=== PATIENT | female | born 1940 | race American Indian/Alaskan Native ===

== ENCOUNTER 2021-05-14 12:30 | Inpatient (IN) | payer MEDICARE ==
[2021-05-14] MEDS ORDERED: SODIUM CHLORIDE 0.9% 500 ML 500 ML IV ONE (12:35)
--- NOTE | 2021-05-14 12:39 | Emergency Department Report ---
ED General Adult HPI - General Stated complaint: STROKE Time Seen by Provider: 05/14/21 12:33 - History of Present Illness Initial comments: Patient presents by EMS secondary to altered CODE STATUS. History is obtained from EMS as the patient is nonverbal. No family is present at this time. EMS was called because the patient was altered this morning. Family checked on the patient and put her to bed at 10 PM last night. They checked on her about 10 AM today and found her confused, she was altered. She was not speaking. She had a left-sided deficit. EMS was called and the patient was transported here. EMS reports that the patient has had seizure type activity during transport. She has been nonverbal but will occasionally nod her head. She will not nod her head consistently. They did administer Ativan 2 mg intranasally during transpor t. Glucose have been found to be 220. - Related Data Previous Rx's Medication Instructions Recorded Last Taken Type Aspirin [Adult Aspirin] 81 mg PO DAILY #30 tablet. 06/30/20 12/13/20 10:00 Rx methIMAzole [Tapazole] 10 mg PO Q24HR #30 tablet 06/30/20 12/13/20 Rx Lansoprazole Solutab [Prevacid 30 mg FEEDTUBE QDAY #30 tab.rapdis 12/27/20 Unkn own Rx Solutab] Apixaban [Eliquis] 5 mg PO Q12HR #60 tablet 12/28/20 Unknown Rx AtorvaSTATin [Lipitor] 40 mg PO QHS #30 tablet 12/28/20 Unknown Rx Metoprolol [Lopressor TAB] 50 mg PO BID #60 tablet 12/28/20 Unknown Rx amLODIPine 10 mg PO DAILY #30 tablet 12/28/20 Unknown Rx hydrALAZINE [Apresoline TAB] 50 mg PO Q8HR #120 tablet 12/28/20 Unknown Rx levETIRAcetam [Keppra] 1,000 mg PO BID #60 oral.liqd 12/28/20 Unknown Rx lisinopriL [Zestril TAB] 20 mg PO BID #60 tablet 12/28/20 Unknown Rx Allergies Allergy/AdvReac Type Severity Reaction Status Date / Time No Known Allergies Allergy Unverified 06/26/20 23:34 ED Review of Systems ROS: Stated complaint: STROKE Other details as noted in HPI Comment: Unobtainable due to pts medical conditions (Nonverbal and altered mental status) ED Past Medical Hx - Past Medical History Hx Hypertension: Yes Hx CVA: Yes (Right side) Hx Heart Attack/AMI: Yes Hx Diabetes: Yes Hx Liver Disease: No Hx Renal Disease: No Hx Sickle Cell Disease: No Hx Seizures: Yes - Family History Family history: other (Cannot be obtained secondary to patient being nonverbal and altered mental status) - Social History Smoking Status: Never Smoker Other Social History: Patient does live at home with her family. EMS reports that the home was clean. - Medications Home Medications: Home Medications Medication Instructions Recorded Confirmed Last Taken Type Aspirin [Adult Aspirin] 81 mg PO DAILY #30 tablet. 06/30/20 12/14/20 12/13/20 10:00 Rx methIMAzole [Tapazole] 10 mg PO Q24HR #30 tablet 06/30/20 12/14/20 12/13/20 Rx Lansoprazole Solutab [Prevacid 30 mg FEEDTUBE QDAY #30 tab.rapdis 12/27/20 Unknown Rx Solutab] Apixaban [Eliquis] 5 mg PO Q12HR #60 tablet 12/28/20 Unknown Rx AtorvaSTATin [Lipitor] 40 mg PO QHS #30 tablet 12/28/20 Unknown Rx Metoprolol [Lopressor TAB] 50 mg PO BID #60 tablet 12/28/20 Unknown Rx amLODIPine 10 mg PO DAILY #30 tablet 12/28/20 Unknown Rx hydrALAZINE [Apresoline TAB] 50 mg PO Q8HR #120 tablet 12/28/20 Unknown Rx levETIRAcetam [Keppra] 1,000 mg PO BID #60 oral.liqd 12/28/20 Unknown Rx lisinopriL [Zestril TAB] 20 mg PO BID #60 tablet 12/28/20 Unknown Rx ED Physical Exam - General Limitations: Altered Mental Status General appearance: alert, other (Nonverbal. Head is deviated to the left. Patient has a conjugate gaze. She will nod her head vertically to every question) - Head Head exam: Present: atraumatic, other (Left flattening of the nasolabial fold) - Eye Eye exam: Present: normal appearance, PERRL. Absent: scleral icterus, conjunctival injection - ENT ENT exam: Present: normal exam, normal orophraynx - Neck Neck exam: Absent: lymphadenopathy - Respiratory Respiratory exam: Present: normal lung sounds bilaterally. Absent: respiratory distress - Cardiovascular Cardiovascular Exam: Present: tachycardia - GI/Abdominal GI/Abdominal exam: Present: soft. Absent: distended, pulsatile mass - Extremities Exam Extremities exam: Present: normal capillary refill, other (Right AKA) - Back Exam Back exam: Absent: rash noted - Neurological Exam Neurological exam: Present: alert, altered, reflexes normal (Bicipital reflexes are 2+ and brisk) - Psychiatric Psychiatric exam: Present: other (Cannot assess as the patient is nonverbal) - Skin Skin exam: Present: dry, other (Hot to touch) ED Course Vital Signs 05/14/21 05/14/21 05/14/21 12:45 13:24 13:29 Temperature 101.8 F H 101.9 F H Pulse Rate 110 H Respiratory 16 Rate Blood Pressure Blood Pressure [Right] O2 Sat by Pulse 100 Oximetry 05/14/21 05/14/21 05/14/21 13:31 13:45 13:49 Temperature Pulse Rate 111 H 113 H Respiratory 24 23 17 Rate Blood Pressure 227/112 201/108 Blood Pressure [Right] O2 Sat by Pulse 100 100 100 Oximetry 05/14/21 05/14/21 05/14/21 14:00 14:15 14:31 Temperature Pulse Rate 113 H 107 H 105 H Respiratory 22 22 13 Rate Blood Pressure 226/119 225/114 213/113 Blood Pressure [Right] O2 Sat by Pulse 100 100 100 Oximetry 05/14/21 05/14/21 05/14/21 14:35 14:45 15:01 Temperature Pulse Rate 107 H 78 82 Respiratory 21 21 Rate Blood Pressure 213/113 213/113 208/104 Blood Pressure [Right] O2 Sat by Pulse 100 100 Oximetry 05/14/21 05/14/21 05/14/21 15:15 15:31 15:41 Temperature Pulse Rate 82 82 Respiratory 20 22 Rate Blood Pressure 208/104 191/95 Blood Pressure 180/100 [Right] O2 Sat by Pulse 100 100 Oximetry 05/14/21 15:45 Temperature Pulse Rate 84 Respiratory 15 Rate Blood Pressure 241/118 Blood Pressure [Right] O2 Sat by Pulse 100 Oximetry - Reevaluation(s) Reevaluation #1: 05/14/21 12:40 EMS was met upon arrival. Stroke activation had been started, but the patient would not meet criteria for thrombolytic therapy. Her symptom onset was potentially 12 hours prior. She has been seizing. She is febrile. I do not believe this represents an acute stroke syndrome that would benefit from thrombolytic therapy. Reevaluation #2: 05/14/21 13:16 Case was discussed with the neurologist who recommends loading with Keppra and Ativan. If she is not waking up, he recommends "intubation and transfer for video EEG." Patient is currently protecting her airway. Reevaluation #3: 05/14/21 15:43 Labs of been reviewed. UA is pending. Patient does seem to be improving and waking up with medication on board. Blood pressure is also improving after la betalol. She will still require admission. She may very well have a urinary tract infection. We will dose antibiotics based on the UA. Certainly, she could have coronavirus without radiographic findings on the chest x-ray suggestive of Covid infection. She does not seem to have ongoing or worsening mentation changes, and actually is improving. Currently I do not believe LP is necessary. Reevaluation #4: 05/14/21 16:43 LP was unsuccessful. We will proceed with admission. Dr. Still had been paged. ED Medical Decision Making - Lab Data Result diagrams: 05/14/21 12:39 05/14/21 12:39 - Medical Decision Making Patient presented with EMS due to altered mental status as a stroke activation. Whether this was truly a stroke is unclear. She has an acute febrile illness and tachycardia that has responded to antipyretics and fluids. There is no clear source of infection. She certainly could have coronavirus. She also had recurrent seizures. Whether she was postictal is unclear. We did attempt LP which was unsuccessful. Currently, antibiotics have not empirically been started as we do not have a source for infection. Now that the patient has defervesced and is getting IV fluids, she does appear to be improved. Case has been discussed with neurologist regarding the CT and lack of convincing evidence of acute stroke and the fact that she would not have been a thrombolytic candidate. Critical Care Time: No Critical care attestation.: If time is entered above; I have spent that time in minutes in the direct care of this critically ill patient, excluding procedure time. ED Disposition Clinical Impression: Altered mental status, HTN (hypertension), Febrile illness, acute Disposition: ADMITTED INPATIENT Is pt being admited?: Yes Does the pt Need Aspirin: No Condition: Stable Instructions: Hypertension (ED) Referrals: PRIMARY CARE, [Primary Care Provider] - 3-5 Days
[2021-05-14 12:49] LABS: Hematocrit 50.5 % (30.3-42.9); Hemoglobin 16.6 gm/dl (10.1-14.3); Mean Corpuscular HGB Conc 33 % (30-34); Mean Corpuscular Volume 88 fl (79-97); Platelet Count 279 K/mm3 (140-440); Red Blood Count 5.71 M/mm3 (3.65-5.03); Red Cell Distribution Width 15.5 % (13.2-15.2)
[2021-05-14 13:01] LABS: Calcium 10.6 mg/dL (8.4-10.2)
[2021-05-14] MEDS ORDERED: levETIRAcetam 1000 MG/NS 0.75% 1,000 MG/100 ML BAG IV ONE (13:14)
--- NOTE | 2021-05-14 13:18 | Consultation ---
History of Present Illness History of present illness: [facility] Consult Note # Demographics Consult Type: Acute Stroke Level 2 (4.5-24 hrs) Patient Location: Emergency Room First Name: Kika Last Name: Matt Date of : 1940 Age: 81 Gender: Female Facility: [facility] Time of Initial Page ( Time): 05/14/2021, 12:48 Time of Return Call ( Time): 05/14/2021, 12:49 # HPI Chief Complaint: altered mental state seizure History: 81F with epilepsy, prior stroke, R AKA BIBEMS with left facial droop and AMS. Has history of seizures, and family saw seizure prior to arrival, but not clear if her usual seizures or not. Is non-verbal, altered, not following commands. Also febrile to 101F. LKWT 2200 evening prior. Requires significant assistance for daily activities. In ED, noted to have multiple convulsive seizures. Has been vomiting at home, and not clear if she has kept down her seizure medicaiton. # Scores Time of exam and NIHSS (): 05/14/2021, 12:55 Level of Consciousness 1a: [1] = Not alert; but arousable by minor stim LOC Questions 1b: [2] = Answers neither correctly LOC Commands 1c: [2] = Performs neither correctly Best Gaze 2: [0] = Normal Visual 3: [2] = Complete hemianopia Facial Palsy 4: [1] = Minor paralysis Motor Arm Left 5a: [3] = No effort against gravity Motor Arm Right 5b: [4] = No movement Motor Leg Left 6a: [3] = No effort against gravity Motor Leg Right 6b: [4] = No movement Limb Ataxia 7: [0] = Absent Sensory 8: [2] = Severe to total sensory loss Best Language 9: [3] = Mute Dysarthria 10: [2] = Severe dysarthria Extinction and Inattention 11: [2] = Profound gonzalo-inattention or extinction to more than one modality NIHSS Total: 31 # Data Time Head CT personally read by me ( Time): 05/14/2021, 12:[address]: no bleed preliminarily reviewed by me, please refer to radiology read for official gerda ding # Assessment Impression: Status Epilepticus # Plan Thrombolytic/Intervention: NOT IV Thrombolysis or IA Intervention candidate Thrombolytic Exclusion: > 4.5 hours Intraarterial Exclusion: poor functional baseline Target Blood Pressure: SBP < 220 DBP < 105 Imaging: (urgency: STAT): CT Angiogram Head and CT Angiogram Neck AND call back with results if abnormal Medication: Lorazepam 2mg IV x1 Levetiracetam 60 mg/kg then 1g BID Additional Recommendations: If no improvement or seizures continue despite lorazepam and levetiracetam, would intubate and place on propofol drip, transfer for video EEG Disposition: admit # Logistics Telemedicine: Interactive 2 way audio and visual telecommunication technology was utilized during this visit Electronically signed at 05/14/2021 13:18 (Eastern Time) by Asael Daugherty MD Medications and Allergies Allergies Allergy/AdvReac Type Severity Reaction Status Date / Time No Known Allergies Allergy Unverified 06/26/20 23:34 Home Medications Medication Instructions Recorded Confirmed Last Taken Type Aspirin [Adult Aspirin] 81 mg PO DAILY #30 tablet. 06/30/20 12/14/20 12/13/20 10:00 Rx methIMAzole [Tapazole] 10 mg PO Q24HR #30 tablet 06/30/20 12/14/20 12/13/20 Rx Lansoprazole Solutab [Prevacid 30 mg FEEDTUBE QDAY #30 tab.rapdis 12/27/20 Unknown Rx Solutab] Apixaban [Eliquis] 5 mg PO Q12HR #60 tablet 12/28/20 Unknown Rx AtorvaSTATin [Lipitor] 40 mg PO QHS #30 tablet 12/28/20 Unknown Rx Metoprolol [Lopressor TAB] 50 mg PO BID #60 tablet 12/28/20 Unknown Rx amLODIPine 10 mg PO DAILY #30 tablet 12/28/20 Unknown Rx hydrALAZINE [Apresoline TAB] 50 mg PO Q8HR #120 tablet 12/28/20 Unknown Rx levETIRAcetam [Keppra] 1,000 mg PO BID #60 oral.liqd 12/28/20 Unknown Rx lisinopriL [Zestril TAB] 20 mg PO BID #60 tablet 12/28/20 Unknown Rx Active Meds: Active Medications Levetiracetam (Keppra 1,000 Mg/Ns 0.75% 100ml) 1,000 mg in 100 mls @ 400 mls/hr IV ONCE ONE Stop: 05/14/21 13:28 Results - Laboratory Findings CBC and BMP: 05/14/21 12:39 05/14/21 12:39 Abnormal Lab Findings: Abnormal Labs 05/14/21 05/14/21 05/14/21 12:34 12:39 12:39 RBC 5.71 H Hgb 16.6 H Hct 50.5 H RDW 15.5 H Carbon Dioxide 21 L BUN 23 H Creatinine 1.6 H Glucose 252 H POC Glucose 222 H Calcium 10.6 H
--- NOTE | 2021-05-14 13:32 | Cat Scan Report ---
CT head without contrast HISTORY: CODE STROKE CALL ER MAIN AT 8199 possible stroke. TECHNIQUE: Axial imaging performed from the skull apex through the skull base without the use of con trast. All CT scans at this location are performed using CT dose reduction for ALARA by means of aut omated exposure control. COMPARISON: CT head from 12/22/2020 FINDINGS: Parenchyma: No acute intracranial hemorrhage or parenchymal abnormality. Old infarct in the left pos terior parietal region and periventricular hypodensities again noted. Ventricles: There is mild diffuse brain atrophy with commensurate ventricular enlargement which is l ikely age appropriate. Soft tissues: Soft tissues including the orbits appear normal. Bones: No acute osseous abnormality. Sinuses: Sinuses and mastoid air cells are clear. IMPRESSION: No acute abnormality. COMMUNICATION: Time of Communication (RECORDS MANAGEMENT CLERK/CDT): 12:27 pm Licensed Practitioner Receiving Report: Dr. Strange Signer Name: Ramon Vargas MD Signed: 05/14/2021 1:27 PM Workstation Name: [id number]
[2021-05-14] MEDS ORDERED: SODIUM CHLORIDE 0.9% 1000 ML IV SOLN IV ONE (13:40)
[2021-05-14 13:51] LABS: INR 1.14 (0.87-1.13)
[2021-05-14 13:52] LABS: Partial Thromboplastin Time 26.9 Sec. (24.2-36.6); Thrombin Time 18.2 Sec. (15.1-19.6)
--- NOTE | 2021-05-14 14:03 | XRay Report ---
CHEST 1 VIEW INDICATION: sirs. COMPARISON: 12/14/2020 FINDINGS: SUPPORT DEVICES: None. HEART: Within normal limits. LUNGS/PLEURA: No acute air space or interstitial disease. ADDITIONAL FINDINGS: None. IMPRESSION: 1. No acute findings. Signer Name: Raomn Vargas MD Signed: 05/14/2021 1:58 PM Workstation Name: [email or web address]
--- NOTE | 2021-05-14 14:10 | Cat Scan Report ---
CT angio head INDICATION / CLINICAL INFORMATION: 81 years Female; CODE STROKE CALL ER MAIN AT 8199 OMNI 350 100 ML stroke sx. TECHNIQUE: Thin cut axial images obtained through the head during IV bolus contrast administration. S agittal, coronal, and 3 plane MIP reconstructions performed by the technologist. NASCET type criteria used evaluate stenoses. Automated exposure control utilized for radiation reduction purposes. COMPARISON: None available. FINDINGS: INTERNAL CAROTID ARTERIES: Focal areas of narrowing is seen in the cavernous and communicating portio ns of both internal carotid arteries, related to atherosclerotic disease. VERTEBROBASILAR SYSTEM: Left vertebral artery slightly dominant when compared with the right. Focal a reas of bandlike narrowing are seen in the distal right vertebral artery, as well as the proximal bas ilar artery-fibromuscular dysplasia might be consideration. DISTAL BRANCHES: Distal branches of the anterior, middle, and posterior cerebral arteries are fairly symmetric in appearance and number. Focal areas of hgql-xe-jhtwkygp narrowing are seen in the P1 and P2 region of the left posterior cere bral artery. Focal area of mild to moderate narrowing is seen in the proximal M1 segment on the left. No branch oc clusion appreciated. ANEURYSM: None identified. ADDITIONAL FINDINGS: Remainder of the surrounding soft tissues are grossly normal. IMPRESSION: 1. Multiple areas of narrowing as described above. No large vessel occlusion appreciated. 2. 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 Signer Name: Rodolfo Bedoya MD, III Signed: 05/14/2021 2:06 PM Workstation Name: [email or web address]
--- NOTE | 2021-05-14 14:18 | Cat Scan Report ---
CT angio neck INDICATION / CLINICAL INFORMATION: 81 years Female; CODE STROKE CALL ER MAIN AT 8199 OMNI 350 100 ML stroke sx. TECHNIQUE: Thin cut axial images obtained through the head during IV bolus contrast administration. S agittal, coronal, and 3 plane MIP reconstructions performed by the technologist. NASCET type criteria used evaluate stenoses. All CT scans at this location are performed using CT dose reduction for ALAR A by means of automated exposure control. COMPARISON: None available. FINDINGS: ARCH: Bovine arch configuration noted. Zzdx-lq-ppqkzphe atherosclerotic disease noted. CAROTID ARTERIES: The visualized common and internal carotid arteries are widely patent. VERTEBRAL ARTERIES: Codominant vertebral system seen. 7 mm segment of moderate to high-grade narrowing is seen in the proximal right vertebral artery near its origin. Focal areas of mild narrowing are seen in both vertebral arteries, related to degenerative change of the cervical spine. Areas of yqzw-zl-pedgrqzp narrowing are seen in the distal vertebral arteries bilaterally, as well as the proximal basilar artery. Atherosclerotic disease or fibromuscular dysplasia might be considered. ADDITIONAL FINDINGS: Anterior fusion hardware seen in the cervical spine from C3 through C6. Interbod y grafts seen at these levels as well. No significant canal stenosis appreciated. IMPRESSION: 1. Focal area of narrowing seen in the proximal right vertebral artery, as described above. 2. Areas of narrowing in the vertebral basilar region as described above. Signer Name: Rodolfo Bedoya MD, III Signed: 05/14/2021 2:13 PM Workstation Name: [email or web address]
[2021-05-14] MEDS ORDERED: ACETAMINOPHEN 650 MG RECT SUPP PR ONE (14:27)
[2021-05-14 15:48] LABS: Bilirubin,Urine NEG (Negative); Blood,Urine NEG (Negative); Color,Urine Yellow (Yellow); Mucus,Urine FEW /HPF; Protein,Urine <15 mg/dL mg/dL (Negative); Urobilinogen,Urine < 2.0 mg/dL (<2.0)
[2021-05-14] MEDS ORDERED: LIDOCAINE (1%) 10 MG/1 ML VIAL 20 ML MDV INFILTRATI ONE (15:53)
--- NOTE | 2021-05-14 16:59 | History and Physical Report ---
History of Present Illness Chief complaint: My mom is just going downhill History of present illness: 81 YO Female with HTN, CVA on Antiplatelet therapy, Vascular Dementia, Cerebral Atherosclerosis, HLD, Hyperthyroidism, Seizure Disorder presents to ED for evaluation. Patient has diminished cognition and is unable to provide history the time of my evaluation. Patient history provided by EMS staff ED staff, as well as patient daughter who was made available via telephone for interview. As per daughter the patient has experienced progressive weakness and confusion over the past 1 week with worsening symptoms over the same timeframe. The patient is bedbound, nonambulatory and requires 6/6 assistance with activities of daily living and has a palliative performance score of 20%. Patient was found to have an active seizure this morning as per daughter. EMS was notified and upon arrival the patient was found to be in distress, and to have a focal neurologic deficit but without seizure activity. A code stroke was called and the patient was subsequently transported to [facility] for further care and evaluation of the aforementioned symptoms. The patient was seen and evaluated in the emergency department. All lab and imaging studies reviewed. Patient was found to have a focal neurologic deficit and was initiated on CVP protocol. Patient found to have accelerated hypertension, metabolic encephalopathy, as well as debility. No reports of fever, chills, chest pain, palpitation, productive cough, skin r rubens, recent ill contacts, or known exposure to COVID-19. Prior admission on 12/14/2020 reviewed. All medication listed at time of admission has been reconciled. Pulmonology consulted in ED. Advanced care planning conducted in ED. Past History Past Medical History: hypertension, hyperlipidemia, hypothyroidism, seizures, stroke Past Surgical History: No surgical history, Other (Reviewed) Social history: single, lives with family. denies: smoking, alcohol abuse, prescription drug abuse Family history: diabetes, hypertension Medications and Allergies Allergies Allergy/AdvReac Type Severity Reaction Status Date / Time No Known Allergies Allergy Unverified 06/26/20 23:34 Home Medications Medication Instructions Recorded Confirmed Last Taken Type Aspirin [Adult Aspirin] 81 mg PO DAILY #30 tablet. 06/30/20 12/14/20 12/13/20 10:00 Rx methIMAzole [Tapazole] 10 mg PO Q24HR #30 tablet 06/30/20 12/14/20 12/13/20 Rx Lansoprazole Solutab [Prevacid 30 mg FEEDTUBE QDAY #30 tab.rapdis 12/27/20 Unknown Rx Solutab] Apixaban [Eliquis] 5 mg PO Q12HR #60 tablet 12/28/20 Unknown Rx AtorvaSTATin [Lipitor] 40 mg PO QHS #30 tablet 12/28/20 Unknown Rx Metoprolol [Lopressor TAB] 50 mg PO BID #60 tablet 12/28/20 Unknown Rx amLODIPine 10 mg PO DAILY #30 tablet 12/28/20 Unknown Rx hydrALAZINE [Apresoline TAB] 50 mg PO Q8HR #120 tablet 12/28/20 Unknown Rx levETIRAcetam [Keppra] 1,000 mg PO BID #60 oral.liqd 12/28/20 Unknown Rx lisinopriL [Zestril TAB] 20 mg PO BID #60 tablet 12/28/20 Unknown Rx Review of Systems ROS unobtainable: due to mental status Exam - Constitutional Vitals: Temp Pulse Resp BP Pulse Ox 99.3 F 89 21 254/123 100 05/14/21 16:51 05/14/21 16:31 05/14/21 16:31 05/14/21 16:31 05/14/21 16:31 General appearance: Present: mild distress, cachectic - EENT Eyes: Present: PERRL ENT: clear oral mucosa, hearing decreased - Neck Neck: Present: supple, normal ROM - Respiratory Respiratory: bilateral: CTA - Cardiovascular Heart Sounds: Present: S1 & S2. Absent: rub, click - Extremities Extremities: pulses symmetrical, No edema Peripheral Pulses: within normal limits - Abdominal General gastrointestinal: Present: soft, non-tender, non-distended, normal bowel sounds Female genitourinary: Present: normal - Integumentary Integumentary: Present: clear, dry - Musculoskeletal Musculoskeletal: generalized weakness - Psychiatric Psychiatric: no appropriate mood/affect, no intact judgment & insight, no memory intact HEART Score - HEART Score Troponin: Troponin T 0.027 ng/mL (0.00-0.029) 05/14/21 12:39 Results - Labs CBC & Chem 7: 05/14/21 12:39 05/14/21 12:39 Labs: Abnormal lab results 05/14/21 05/14/21 05/14/21 Range/Units 12:34 12:39 12:39 RBC 5.71 H (3.65-5.03) M/mm3 Hgb 16.6 H (10.1-14.3) gm/dl Hct 50.5 H (30.3-42.9) % RDW 15.5 H (13.2-15.2) % PT (12.2-14.9) Sec. INR (0.87-1.13) Carbon Dioxide 21 L (22-30) mmol/L BUN 23 H (7-17) mg/dL Creatinine 1.6 H (0.6-1.2) mg/dL Glucose 252 H (65-100) mg/dL POC Glucose 222 H (70-105) mg/dL Lactic Acid (0.7-2.0) mmol/L Calcium 10.6 H (8.4-10.2) mg/dL Ur Specific Carr (1.003-1.030) 05/14/21 05/14/21 05/14/21 Range/Units 12:39 13:55 14:53 RBC (3.65-5.03) M/mm3 Hgb (10.1-14.3) gm/dl Hct (30.3-42.9) % RDW (13.2-15.2) % PT 15.1 H (12.2-14.9) Sec. INR 1.14 H (0.87-1.13) Carbon Dioxide (22-30) mmol/L BUN (7-17) mg/dL Creatinine (0.6-1.2) mg/dL Glucose (65-100) mg/dL POC Glucose (70-105) mg/dL Lactic Acid 5.70 H* (0.7-2.0) mmol/L Calcium (8.4-10.2) mg/dL Ur Specific Carr 1.044 H (1.003-1.030) Assessment and Plan - Patient Problems (1) CVA (cerebral vascular accident) Current Visit: No Status: Acute Plan to address problem: CVA protocol: CT head, CTA head, CTA neck, antiplatelet therapy, lipid panel, statin therapy, echocardiogram, supportive care. Pulmonology consulted. (2) Malignant hypertension Current Visit: Yes Status: Acute Plan to address problem: Monitor blood pressure every shift, continue medical management, IV hydralazine every 6 hours as needed for systolic blood pressure greater than or equal to 185 mmHg (3) Debility Current Visit: Yes Status: Acute Plan to address problem: Physical therapy consulted. (4) Acute encephalopathy Current Visit: No Status: Acute Plan to address problem: CT head, neuro check, supportive care, aspiration precautions, seizure p recautions, fall precautions (5) DVT prophylaxis Current Visit: Yes Status: Acute Plan to address problem: SCD to bilateral lower extremities while in bed (6) Advance care planning Current Visit: Yes Status: Acute Plan to address problem: Disease education conducted, care plan discussed, diagnoses discussed, prognosis discussed, patient is full code at this time, patient daughter acknowledges understanding and agreed with care plan. +30 minutes. Patient prognosis and poor rehab potential discussed with daughter. Patient daughter is amenable for discharge home tomorrow evening with supportive care. Destini Smith [phone]
[2021-05-14] MEDS ORDERED: HYDROmorphone 1 MG/1 ML INJ IV PRN (18:02)
[2021-05-14] MEDS ORDERED: ACETAMINOPHEN 325 MG TAB PO PRN (18:02)
[2021-05-14] MEDS ORDERED: PROMETHAZINE 25 MG RECT SUPP PR PRN (18:02)
[2021-05-14] MEDS ORDERED: METOCLOPRAMIDE 10 MG TAB PO PRN (18:02)
[2021-05-14] MEDS ORDERED: ONDANSETRON 4 MG/2 ML INJ IV PRN (18:02)
[2021-05-14] MEDS ORDERED: MAGNESIUM HYDROXIDE (MOM) ORAL LIQD UDC PO PRN (18:02)
[2021-05-14] MEDS: hydrALAZINE 20 MG/1 ML INJ IV PRN (18:30)
[2021-05-14] MEDS: hydrALAZINE 25 MG TAB PO SCH ×2 (21:52→22:13)
[2021-05-14] MEDS ORDERED: NON-FORMULARY EACH (Apixaban 5 MG Tablet) PO SCH (22:00)
[2021-05-14] MEDS: APIXABAN 2.5 MG TAB PO SCH (22:13)
[2021-05-14] MEDS: levETIRAcetam 500 MG/5 ML ORAL LIQD PO SCH (22:13)
[2021-05-14] MEDS: METOPROLOL TARTRATE 50 MG TAB PO SCH (22:13)
[2021-05-14] MEDS: LISINOPRIL 20 MG TAB PO SCH (22:14)
[2021-05-15] MEDS: hydrALAZINE 25 MG TAB PO SCH ×3 (06:37→22:43)
[2021-05-15] MEDS ORDERED: ASPIRIN EC 81 MG TAB PO SCH (10:00)
[2021-05-15] MEDS: methIMAzole 5 MG TAB PO SCH (13:00)
[2021-05-15] MEDS: METOPROLOL TARTRATE 50 MG TAB PO SCH ×2 (13:00→22:44)
[2021-05-15] MEDS: APIXABAN 2.5 MG TAB PO SCH ×2 (13:00→22:44)
[2021-05-15] MEDS: levETIRAcetam 500 MG/5 ML ORAL LIQD PO SCH ×2 (13:00→22:43)
[2021-05-15] MEDS: LISINOPRIL 20 MG TAB PO SCH ×2 (13:00→22:44)
[2021-05-15] MEDS: amLODIPine 10 MG TAB PO SCH (13:00)
[2021-05-15] MEDS: ASPIRIN 325 MG TAB PO SCH (13:00)
[2021-05-15] MEDS: LANSOPRAZOLE 30 MG SOLUTAB FEEDTUBE SCH (13:00)
--- NOTE | 2021-05-15 13:14 | Electrocardiograph Report ---
[facility] Test Date: 2021-05-14 Test Time: 13:36:47 Pat Name: JAX AKBAR Department: Room: A474 Gender: F Occupational Therapist'S Assistant: JORGE LUIS : 1940 Requested By: GIGI YOO Order Number: [id number] Reading MD: Clarence Rodriges Measurements Intervals [place] Rate: 115 P: 64 UT: 189 QRS: -41 QRSD: 87 T: 113 QT: 285 QTc: 394 Interpretive Statements Sinus tachycardia LAE, consider biatrial enlargement Inferior infarct, old Nonspecific T abnormalities, lateral leads Compared to ECG 12/15/2020 07:26:49 T-wave abnormality now present Sinus rhythm no longer present Ventricular premature complex(es) no longer present Left ventricular hypertrophy no longer present Early repolarization no longer present Prolonged QT interval no longer present Myocardial infarct finding still present Electronically Signed On 05-15-2021 13:13:39 EDT by Clarence Rodriges
[2021-05-15] MEDS ORDERED: METOCLOPRAMIDE 10 MG TAB PO PRN (15:00)
--- NOTE | 2021-05-15 15:54 | Progress Note ---
Assessment and Plan (1) CVA (cerebral vascular accident) Current Visit: No Status: Acute Plan to address problem: CVA protocol: CT head, CTA head, CTA neck, antiplatelet therapy, lipid panel, statin therapy, echocardiogram, supportive care. Pulmonology consulted. (2) Malignant hypertension Current Visit: Yes Status: Acute Plan to address problem: Monitor blood pressure every shift, continue medical management, IV hydralazine every 6 hours as needed for systolic blood pressure greater than or equal to 185 mmHg (3) Debility Current Visit: Yes Status: Acute Plan to address problem: Physical therapy consulted. (4) Acute encephalopathy Current Visit: No Status: Acute Plan to address problem: CT head, neuro check, supportive care, aspiration precautions, seizure precautio ns, fall precautions (5) DVT prophylaxis Current Visit: Yes Status: Acute Plan to address problem: SCD to bilateral lower extremities while in bed (6) Advance care planning Current Visit: Yes Status: Acute Plan to address problem: Disease education conducted, care plan discussed, diagnoses discussed, prognosis discussed, patient is full code at this time, patient daughter acknowledges understanding and agreed with care plan. +30 minutes. Patient prognosis and poor rehab potential discussed with daughter. Patient daughter is amenable for discharge home tomorrow evening with supportive care. Destini Luis [phone] Subjective Date of service: 05/15/21 Objective - Constitutional Vitals: Vital Signs - 12hr 05/15/21 05/15/21 05/15/21 05:06 06:37 07:57 Temperature 98.7 F 98.9 F Pulse Rate 70 79 Respiratory 14 16 Rate Blood Pressure 170/82 170/82 153/79 O2 Sat by Pulse 100 97 Oximetry 05/15/21 05/15/21 10:00 11:36 Temperature 98.9 F Pulse Rate 78 Respiratory 18 Rate Blood Pressure 167/77 O2 Sat by Pulse 98 98 Oximetry - Labs CBC & Chem 7: 05/14/21 12:39 05/14/21 12:39 Labs: Abnormal lab results 05/14/21 05/15/21 Range/Units 17:03 07:55 POC Glucose 140 H (70-105) mg/dL Lactic Acid 4.10 H* (0.7-2.0) mmol/L HEART Score - HEART Score Troponin: Troponin T 0.027 ng/mL (0.00-0.029) 05/14/21 12:39
[2021-05-15] MEDS: oxyCODONE /ACETAMINOPHEN 5-325MG TAB PO PRN (16:00)
[2021-05-15] MEDS ORDERED: cloNIDine TTS 0.2 MG/24 HR PATCH TD SCH (18:00)
[2021-05-16] MEDS: hydrALAZINE 25 MG TAB PO SCH ×3 (05:20→23:07)
[2021-05-16] MEDS: oxyCODONE /ACETAMINOPHEN 5-325MG TAB PO PRN (05:27)
--- NOTE | 2021-05-16 08:32 | Consultation ---
History of Present Illness Consult date: 05/16/21 Reason for Consult: one week Hx of worsening mentation History of present illness: My mom is just going downhill History of present illness: 81 YO Female with HTN, CVA on Antiplatelet therapy, Vascular Dementia, Cerebral Atherosclerosis, HLD, Hyperthyroidism, Seizure Disorder presents to ED for evaluation. Patient has diminished cognition and is unable to provide history the time of my evaluation. Patient history provided by EMS staff ED staff, as well as patient daughter who was made available via telephone for interview. As per daughter the patient has experienced progressive weakness and confusion over the past 1 week with worsening symptoms over the same timeframe. The patient is bedbound, nonambulatory and requires 6/6 assistance with activities of daily living and has a palliative performance score of 20%. Patient was found to have an active seizure this morning as per daughter. EMS was notified and upon arrival the patient was found to be in distress, and to have a focal neurologic deficit but without seizure activity. A code stroke was called and the patient was subsequently transported to [facility] for further care and evaluation of the aforementioned symptoms. The patient was seen and evaluated in the emergency department. All lab and imaging studies reviewed. Patient was found to have a focal neurologic deficit and was initiated on CVP protocol. Patient found to have accelerated hypertension, metabolic encephalopathy, as well as debility. No reports of fever, chills, chest pain, palpitation, productive cough, skin rash, recent ill contacts, or known exposure to COVID-19. Prior admission on 12/14/2020 reviewed. All medication listed at time of admission has been reconciled. Pulmonology consulted in ED. Advanced care planning conducted in ED. pt. initiall NIH#35 ct brain is normal,,CTA brain and neck showed multiple intracranial vascular stenosisi in Cavernous section ICA bilateral and distal right vertebral a.and basilar a. pt. is on ASA and Eliquis ? mri brain is pending pt. is on keppra 100 mg bid she is s/p AKA right side Past History Past Medical History: hypertension, hyperlipidemia, hypothyroidism, seizures, stroke Past Surgical History: R.HUSSAINA Social history: single, lives with family. denies: smoking, alcohol abuse, prescription drug abuse Family history: diabetes, hypertension Medications and Allergies Allergies Allergy/AdvReac Type Severity Reaction Status Date / Time No Known Allergies Allergy Unverified 06/26/20 23:34 Home Medications Medication Instructions Recorded Confirmed Last Taken Type Aspirin [Adult Aspirin] 81 mg PO DAILY #30 tablet. 06/30/20 12/14/20 12/13/20 10:00 Rx methIMAzole [Tapazole] 10 mg PO Q24HR #30 tablet 06/30/20 12/14/20 12/13/20 Rx Lansoprazole Solutab [Prevacid 30 mg FEEDTUBE QDAY #30 tab.rapdis 12/27/20 Unknown Rx Solutab] Apixaban [Eliquis] 5 mg PO Q12HR #60 tablet 12/28/20 Unknown Rx AtorvaSTATin [Lipitor] 40 mg PO QHS #30 tablet 12/28/20 Unknown Rx Metoprolol [Lopressor TAB] 50 mg PO BID #60 tablet 12/28/20 Unknown Rx amLODIPine 10 mg PO DAILY #30 tablet 12/28/20 Unknown Rx hydrALAZINE [Apresoline TAB] 50 mg PO Q8HR #120 tablet 12/28/20 Unknown Rx levETIRAcetam [Keppra] 1,000 mg PO BID #60 oral.liqd 12/28/20 Unknown Rx lisinopriL [Zestril TAB] 20 mg PO BID #60 tablet 12/28/20 Unknown Rx Review of Systems ROS unobtainable: due to mental status Past History Past Medical History: hypertension, hyperlipidemia, hypothyroidism, seizures, stroke Past Surgical History: No surgical history, Other (Reviewed) Social history: single, lives with family. denies: smoking, alcohol abuse, prescription drug abuse Family history: diabetes, hypertension Medications and Allergies Allergies Allergy/AdvReac Type Severity Reaction Status Date / Time No Known Allergies Allergy Unverified 06/26/20 23:34 Home Medications Medication Instructions Recorded Confirmed Last Taken Type Aspirin [Adult Aspirin] 81 mg PO DAILY #30 tablet. 06/30/20 12/14/20 12/13/20 10:00 Rx methIMAzole [Tapazole] 10 mg PO Q24HR #30 tablet 06/30/20 12/14/20 12/13/20 Rx Lansoprazole Solutab [Prevacid 30 mg FEEDTUBE QDAY #30 tab.rapdis 12/27/20 Unknown Rx Solutab] Apixaban [Eliquis] 5 mg PO Q12HR #60 tablet 12/28/20 Unknown Rx AtorvaSTATin [Lipitor] 40 mg PO QHS #30 tablet 12/28/20 Unknown Rx Metoprolol [Lopressor TAB] 50 mg PO BID #60 tablet 12/28/20 Unknown Rx amLODIPine 10 mg PO DAILY #30 tablet 12/28/20 Unknown Rx hydrALAZINE [Apresoline TAB] 50 mg PO Q8HR #120 tablet 12/28/20 Unknown Rx levETIRAcetam [Keppra] 1,000 mg PO BID #60 oral.liqd 12/28/20 Unknown Rx lisinopriL [Zestril TAB] 20 mg PO BID #60 tablet 12/28/20 Unknown Rx Active Meds: Active Medications Acetaminophen (Acetaminophen 325 Mg Tab) 650 mg PO Q4H PRN PRN Reason: Pain, Mild (1-3) Amlodipine Besylate (Amlodipine 10 Mg Tab) 10 mg PO DAILY [facility] Last Admin: 05/15/21 13:00 Dose: 10 mg Documented by: Apixaban (Apixaban 2.5 Mg Tab) 2.5 mg PO Q12HR [facility] Last Admin: 05/15/21 22:44 Dose: 2.5 mg Documented by: Aspirin (Aspirin 325 Mg Tab) 325 mg PO QDAY [facility] Last Admin: 05/15/21 13:00 Dose: 325 mg Documented by: Atorvastatin Calcium (Atorvastatin 40 Mg Tab) 40 mg PO QHS [facility] Last Admin: 05/15/21 22:44 Dose: 40 mg Documented by: Bisacodyl (Bisacodyl 10 Mg Rect Supp) [address] QDAY PRN PRN Reason: Constipation Clonidine HCl (Clonidine Tts 0.2 Mg/24 Hr Patch) 0.2 mg TD Gomes [facility] Last Admin: 05/16/21 05:19 Dose: 0.2 mg Documented by: Hydralazine HCl (Hydralazine 25 Mg Tab) 50 mg PO Q8HR [facility] Last Admin: 05/16/21 05:20 Dose: 50 mg Documented by: Hydralazine HCl (Hydralazine 20 Mg/1 Ml Inj) 20 mg IV Q6HR PRN PRN Reason: Hypertension Last Admin: 05/14/21 18:30 Dose: 20 mg Documented by: Hydromorphone HCl (Hydromorphone 1 Mg/1 Ml Inj) 0.5 mg IV Q24H PRN PRN Reason: Pain , Severe (7-10) Lansoprazole (Lansoprazole 30 Mg Solutab) 30 mg FEEDTUBE QDAY [facility] Last Admin: 05/15/21 13:00 Dose: 30 mg Documented by: Levetiracetam (Levetiracetam 500 Mg/5 Ml Oral Liqd) 1,000 mg PO BID [facility] Last Admin: 05/15/21 22:43 Dose: 1,000 mg Documented by: Lisinopril (Lisinopril 20 Mg Tab) 20 mg PO BID [facility] Last Admin: 05/15/21 22:44 Dose: 20 mg Documented by: Magnesium Hydroxide (Magnesium Hydroxide (Mom) Oral Liqd Udc) 30 ml PO Q4H PRN PRN Reason: Constipation Methimazole (Methimazole 5 Mg Tab) 10 mg PO Q24HR [facility] Last Admin: 05/15/21 13:00 Dose: 10 mg Documented by: Metoclopramide HCl (Metoclopramide 10 Mg Tab) 5 mg PO Q6H PRN PRN Reason: Nausea And Vomiting Metoprolol Tartrate (Metoprolol Tartrate 50 Mg Tab) 50 mg PO BID [facility] Last Admin: 05/15/21 22:44 Dose: 50 mg Documented by: Ondansetron HCl (Ondansetron 4 Mg/2 Ml Inj) 4 mg IV Q8H PRN PRN Reason: Nausea And Vomiting Oxycodone/Acetaminophen (Oxycodone /Acetaminophen 5-325mg Tab) 1 tab PO Q12H PRN PRN Reason: Pain, Moderate (4-6) Last Admin: 05/16/21 05:27 Dose: 1 tab Documented by: Promethazine HCl (Promethazine 25 Mg Rect Supp) [address] Q6H PRN PRN Reason: Nausea And Vomiting Sodium Chloride (Sodium Chloride 0.9% 10 Ml Flush Syringe) 10 ml IV PRN PRN PRN Reason: LINE FLUSH Physical Examination - Vital Signs Vital Signs: Vital Signs Temp 101.8 F H 05/14/21 12:45 - Constitutional General appearance: comfortable - EENT EENT: Present: PERRL, mucous membranes moist - Respiratory Respiratory: Present: chest non-tender, lungs clear, rhonchi - Cardiovascular Cardiovascular: Present: regular rate, normal S1, normal S2 Extremities: Present: no peripheral edema bilatateraly, no clubbing, cyanosis, other (right AKA) - Gastrointestinal Gastrointestinal: Present: normoactive bowel sounds - Integumentary Integumentary: Present: normal - Neurologic Cranial nerve examination: PERRL, EOMI, other (right facial droop) Speech examination: other (poor comprehension , does not follow command she is talking on her own ) Cerebellar examination: other (she is with right pronator drift and right AKA) - Level of Consciousness 1a. Level of Consciousness: alert/keenly responsive - LOC Questions 1b. LOC Questions: aphasic - LOC Command 1c. LOC Commands: performs no tasks correctly - Best Gaze 2. Best Gaze: normal - Visual 3. Visual: no visual loss - Facial Palsy 4. Facial Palsy: minor paralysis - Motor Arm 5a. Motor Arm Left: no drift 5b. Motor Arm Right: drift - Motor Leg 6a. Motor Leg Left: no drift 6b. Motor Leg Right: no movement - Limb Ataxia 7. Limb Ataxia: absent - Sensory 8. Sensory: normal - Best Language 9. Best Language: mute/global aphasia - Dysarthria 10. Dysarthria: normal - Extinction and Inattention 11. Extinction/Inattention: no abnormality - Scoring Total Score: 13 Stroke Severity: Moderate Stroke Results - Laboratory Findings CBC and BMP: 05/14/21 12:39 05/14/21 12:39 Abnormal Lab Findings: Abnormal Labs 05/14/21 05/14/21 05/14/21 12:34 12:39 12:39 RBC 5.71 H Hgb 16.6 H Hct 50.5 H RDW 15.5 H PT INR Carbon Dioxide 21 L BUN 23 H Creatinine 1.6 H Glucose 252 H POC Glucose 222 H Lactic Acid Calcium 10.6 H Ur Specific [place] 05/14/21 05/14/21 05/14/21 12:39 13:55 14:53 RBC Hgb Hct RDW PT 15.1 H INR 1.14 H Carbon Dioxide BUN Creatinine Glucose POC Glucose Lactic Acid 5.70 H* Calcium Ur Specific [place] 1.044 H 05/14/21 05/15/21 17:03 07:55 RBC Hgb Hct RDW PT INR Carbon Dioxide BUN Creatinine Glucose POC Glucose 140 H Lactic Acid 4.10 H* Calcium Ur Specific [place] Assessment and Plan Assessment and Plan - Patient Problems # CVA (cerebral vascular accident) this is 81 ys femal presented for evaluation of worsening of mentation noted by family -Ct brain is unremarkable -Exam is remarkable for right side weakness and fluent aphasia -she is AKA right side -today NIH#13 -MRI brain is pending -On ASA and Eliquis ? , lipitor 40 mg -Echo is pending # Malignant hypertension -Monitor blood pressure every shift, -continue medical management, -IV hydralazine every 6 hours as needed for systolic blood pressure greater than or equal to 185 mmHg -Control BP<150/80 # Debility -Physical therapy consulted. # underlying dementia ? # Hx of seizure -no sign to suggest status -On keppra 1000 mg bid -EEG is pending # DVT prophylaxis -SCD to bilateral lower extremities while in bed # Advance care planning Disease education conducted, care plan discussed, diagnoses discussed, prognosis discussed, patient is full code at this time, patient daughter acknowledges understanding and agreed with care plan. +30 minutes. Patient prognosis and poor rehab potential discussed with daughter. Patient daughter is amenable for discharge home tomorrow evening with supportive care. Destini Smith [phone] will follow
[2021-05-16] MEDS: ASPIRIN 325 MG TAB PO SCH (09:36)
[2021-05-16] MEDS: METOPROLOL TARTRATE 50 MG TAB PO SCH ×2 (09:37→23:06)
[2021-05-16] MEDS: amLODIPine 10 MG TAB PO SCH (09:37)
[2021-05-16] MEDS: levETIRAcetam 500 MG/5 ML ORAL LIQD PO SCH ×2 (09:37→23:06)
[2021-05-16] MEDS: methIMAzole 5 MG TAB PO SCH (09:37)
[2021-05-16] MEDS: LANSOPRAZOLE 30 MG SOLUTAB FEEDTUBE SCH (09:37)
[2021-05-16] MEDS: APIXABAN 2.5 MG TAB PO SCH ×2 (09:37→23:08)
[2021-05-16] MEDS: LISINOPRIL 20 MG TAB PO SCH ×2 (09:38→23:07)
[2021-05-16] MEDS ORDERED: ASPIRIN 81 MG TAB CHEW PO SCH (12:43)
--- NOTE | 2021-05-16 16:52 | Magnetic Resonance Report ---
MRI BRAIN 05/16/2021 INDICATION / CLINICAL INFORMATION: cva. TECHNIQUE: Multiplanar, multisequence MR images of the brain were obtained. COMPARISON: CT brain 05/14/2021. MRI brain 12/14/2020. FINDINGS: BRAIN / INTRACRANIAL CONTENTS: Unenhanced MR images of the brain demonstrate no evidence of acute abn ormality. Ventricles and sulci are prominent in size, consistent with age-related atrophic change. Chronic ence phalomalacia in the left occipital and posterior temporal lobe are again noted. Extensive chronic whi te matter T2 weighted hyperintensities are present in the periventricular and deep white matter of th e cerebral hemispheres. ] There is no evidence of acute ischemic injury, hemorrhage or mass. There are no abnormal extra-axial fluid collections. EXTRACRANIAL: Unremarkable CRANIOCERVICAL JUNCTION: No significant abnormality. VASCULAR FLOW-VOIDS: No significant abnormality. IMPRESSION: No acute abnormality. Age-related and chronic ischemic change. Signer Name: Dat Burt MD Signed: 05/16/2021 4:48 PM Workstation Name: [id number]
--- NOTE | 2021-05-16 17:48 | Progress Note ---
Assessment and Plan (1) CVA (cerebral vascular accident) Current Visit: No Status: Acute Plan to address problem: CVA protocol: CT head, CTA head, CTA neck, antiplatelet therapy, lipid panel, statin therapy, echocardiogram, supportive care. Pulmonology consulted. (2) Malignant hypertension Current Visit: Yes Status: Acute Plan to address problem: Monitor blood pressure every shift, continue medical management, IV hydralazine every 6 hours as needed for systolic blood pressure greater than or equal to 185 mmHg (3) Debility Current Visit: Yes Status: Acute Plan to address problem: Physical therapy consulted. (4) Acute encephalopathy Current Visit: No Status: Acute Plan to address problem: CT head, neuro check, supportive care, aspiration precautions, seizure precautio ns, fall precautions (5) DVT prophylaxis Current Visit: Yes Status: Acute Plan to address problem: SCD to bilateral lower extremities while in bed (6) Advance care planning Current Visit: Yes Status: Acute Plan to address problem: Disease education conducted, care plan discussed, diagnoses discussed, prognosis discussed, patient is full code at this time, patient daughter acknowledges understanding and agreed with care plan. +30 minutes. Patient prognosis and poor rehab potential discussed with daughter. Patient daughter is amenable for discharge home tomorrow evening with supportive care. Destini Smith [phone] Disposition: Home with home health, MRI brain showed no acute process but chron ic advanced vascular disease. Continue supportive care. Patient daughter wants patient to be discharged tomorrow afternoon -television station manager notified for discharge planning Subjective Date of service: 05/16/21 Objective - Constitutional Vitals: Vital Signs - 12hr 05/16/21 05/16/21 05/16/21 07:44 09:37 10:00 Temperature 97.4 F L Pulse Rate 33 L 74 Respiratory 20 Rate Blood Pressure 186/59 187/78 O2 Sat by Pulse 97 94 Oximetry 05/16/21 05/16/21 05/16/21 10:40 12:18 13:42 Temperature 98.9 F Pulse Rate 42 L Respiratory 20 Rate Blood Pressure 184/68 171/53 O2 Sat by Pulse 97 98 Oximetry 05/16/21 16:16 Temperature 97.5 F L Pulse Rate 36 L Respiratory 20 Rate Blood Pressure 175/59 O2 Sat by Pulse 96 Oximetry - Labs CBC & Chem 7: 05/14/21 12:39 05/14/21 12:39 Labs: Abnormal lab results 05/16/21 05/16/21 Range/Units 12:29 16:53 POC Glucose 112 H 114 H (70-105) mg/dL HEART Score - HEART Score Troponin: Troponin T 0.027 ng/mL (0.00-0.029) 05/14/21 12:39
[2021-05-17] MEDS: hydrALAZINE 25 MG TAB PO SCH ×3 (07:00→21:25)
[2021-05-17] MEDS: amLODIPine 10 MG TAB PO SCH (09:30)
[2021-05-17] MEDS: APIXABAN 2.5 MG TAB PO SCH ×2 (09:30→21:18)
[2021-05-17] MEDS: levETIRAcetam 500 MG/5 ML ORAL LIQD PO SCH (09:30)
[2021-05-17] MEDS: methIMAzole 5 MG TAB PO SCH (09:30)
[2021-05-17] MEDS: LANSOPRAZOLE 30 MG SOLUTAB FEEDTUBE SCH (09:30)
[2021-05-17] MEDS: LISINOPRIL 20 MG TAB PO SCH ×2 (09:31→21:18)
[2021-05-17] MEDS: METOPROLOL TARTRATE 50 MG TAB PO SCH ×2 (09:31→21:17)
[2021-05-17] MEDS: hydrALAZINE 20 MG/1 ML INJ IV PRN (09:31)
[2021-05-17] MEDS ORDERED: ASPIRIN EC 81 MG TAB PO SCH (10:00)
--- NOTE | 2021-05-17 12:11 | Progress Note ---
Assessment and Plan Assessment and Plan - Patient Problems # CVA (cerebral vascular accident) this is 81 ys femal presented for evaluation of worsening of mentation noted by family -Ct brain is unremarkable -Exam is remarkable for right side weakness and fluent aphasia ? -she is AKA right side -today NIH#13 -MRI brain is remarkable for remote left occipital and temporal encephalomalacia -On ASA and Eliquis ? , lipitor 40 mg -Echo EF#50-55% # Malignant hypertension -Monitor blood pressure every shift, -continue medical management, -IV hydralazine every 6 hours as needed for systolic blood pressure greater than or equal to 185 mmHg -Control BP<150/80 # Debility -Physical therapy consulted. # underlying dementia ? # Hx of seizure -no sign to suggest status -On keppra 1000 mg bid -EEG is remarkable for diffuse slowing with n o epileptiform discharges is noted # DVT prophylaxis -SCD to bilateral lower extremities while in bed # Advance care planning Disease education conducted, care plan discussed, diagnoses discussed, prognosis discussed, patient is full code at this time, patient daughter acknowledges understanding and agreed with care plan. +30 minutes. Patient prognosis and poor rehab potential discussed with daughter. Patient daughter is amenable for discharge home tomorrow evening with supportive care. Destini Smith [phone] PLAN 1- reduce keppra to 500 m g IV /po bid 2- PT/ST 3- she is on ASA 81 mg and Eliquis ? DVT .she is in NSR 4- decrease Keppra to 500 mg po/iv bid over all prognosis is quarded will sign off Subjective Date of service: 05/17/21 Principal diagnosis: right side weakness and change in mentation Interval history: she is same not respond to command appropriately right side weakness unchanged MRI is remarkable for remote left occipital and temporal infarct EEG showed no sign of seizure on keppra Objective - Vital Sign Vital Signs - 12hr 05/17/21 05/17/21 05/17/21 03:31 07:00 08:56 Temperature 98.0 F 98.1 F Pulse Rate 31 L 31 L Respiratory 20 18 Rate Blood Pressure 191/61 191/61 129/59 Blood Pressure [Right] O2 Sat by Pulse 100 99 Oximetry 05/17/21 05/17/21 05/17/21 09:30 09:31 12:04 Temperature 98.7 F Pulse Rate 59 L 59 L 60 Respiratory 17 Rate Blood Pressure 185/91 185/91 Blood Pressure 158/52 [Right] O2 Sat by Pulse 97 Oximetry - General Apperance Constitutional: comfortable - EENT EENT: PERRL, mucous membranes moist - Respiratory Respiratory: lungs clear, rhonchi - Cardiovascular Cardiovascular: regular rate, normal S1, normal S2 Extremities: no peripheral edema bilat, other (right BKA) - Gastrointestinal Gastrointestinal: normoactive bowel sounds - Integumentary Integumentary: normal - Neurologic Cranial nerve examination: PERRL, EOMI, other (right facial droop) Speech examination: other (no clear speech out put memble but does not answer question ) - Musculoskeletal Musculoskeletal: other (right side upper 3+/5 left4/5 planter is dowmn , right AKA) - Laboratory Findings CBC and BMP: 05/14/21 12:39 05/14/21 12:39 Abnormal Lab Findings: Abnormal Labs 05/14/21 05/14/21 05/14/21 12:34 12:39 12:39 RBC 5.71 H Hgb 16.6 H Hct 50.5 H RDW 15.5 H PT INR Carbon Dioxide 21 L BUN 23 H Creatinine 1.6 H Glucose 252 H POC Glucose 222 H Lactic Acid Calcium 10.6 H Ur Specific [place] 05/14/21 05/14/21 05/14/21 12:39 13:55 14:53 RBC Hgb Hct RDW PT 15.1 H INR 1.14 H Carbon Dioxide BUN Creatinine Glucose POC Glucose Lactic Acid 5.70 H* Calcium Ur Specific [place] 1.044 H 05/14/21 05/15/21 05/16/21 17:03 07:55 12:29 RBC Hgb Hct RDW PT INR Carbon Dioxide BUN Creatinine Glucose POC Glucose 140 H 112 H Lactic Acid 4.10 H* Calcium Ur Specific [place] 05/16/21 05/16/21 05/17/21 16:53 19:19 08:04 RBC Hgb Hct RDW PT INR Carbon Dioxide BUN Creatinine Glucose POC Glucose 114 H 175 H 125 H Lactic Acid Calcium Ur Specific [place]
--- NOTE | 2021-05-17 13:42 | Discharge Summary ---
Providers - Providers Date of Admission: 05/16/21 15:43 Date of discharge: 05/17/21 Attending physician: HEAVEN DOWNS 05/14/21 18:02 Occupational Therapy Evaluate and Treat [CONS] Routine Comment: Reason For Exam: Neuro deficits Physical Therapy Evaluation and Treat [CONS] Routine Comment: Reason For Exam: Neuro deficits 05/15/21 13:56 Consult to Physician [CONS] Routine Comment: Consulting Provider: JACK GARCIAS Physician Instructions: Reason For Exam: CVA Primary care physician: HOSPITAL CHIEF FINANCIAL OFFICER Hospitalization Condition: Stable Disposition: HOME HEALTH CARE SERVICE Final Discharge Diagnosis (Prints w/discharge instructions): Malignant HTN, DANTE with vasomotor nephropathy, lactic acidosis, h/o CVA on Antiplatelet therapy, Vascular Dementia, Cerebral Atherosclerosis, HLD, Hyperthyroidism, Seizure Disorder, metabolic encephalopathy due to dehydration and undelying dementia Time spent for discharge: 34 minutes Exam - Constitutional Vitals: Temp Pulse Resp BP Pulse Ox 98.7 F 60 17 158/52 97 05/17/21 12:04 05/17/21 12:04 05/17/21 12:04 05/17/21 12:04 05/17/21 12:04 Plan Activity: fall precautions Weight Bearing Status: Non-Weight Bearing Diet: per dietitian instruction Follow up with: TONO RAVI MD [Primary Care Provider] - 3-5 Days FELECIA MORGAN MD [Staff Physician] - 7 Days
[2021-05-17 14:07] LABS: Chol/HDL Ratio 2.32 %
[2021-05-17] MEDS ORDERED: levETIRAcetam 500 MG/5 ML ORAL LIQD PO SCH (22:00)
[2021-05-17 22:45] VITALS: BP 123/60
== END 2021-05-17 22:50 | disposition home or self-care (01) | DRG 70 ==
LOC: ED 12:30 → 4A 18:02 → OBSVTOIN 05-16 15:43
PROVIDERS: ADMIT Internal Medicine; ATTEND Internal Medicine
DX: G93.41 Metabolic encephalopathy (principal); N17.0 Acute kidney failure with tubular necrosis; E87.2 Acidosis; I10 Essential (primary) hypertension; E11.9 Type 2 diabetes mellitus without complications; E86.0 Dehydration; I25.2 Old myocardial infarction; Z79.01 Long term (current) use of anticoagulants; Z79.82 Long term (current) use of aspirin; G40.901 Epilepsy, unspecified, not intractable, with status epilepticus; E78.5 Hyperlipidemia, unspecified; F01.50 Vascular dementia, unspecified severity, without behavioral disturbance, psychotic disturbance, mood disturbance, and anxiety; E03.9 Hypothyroidism, unspecified; Z82.49 Family history of ischemic heart disease and other diseases of the circulatory system; Z83.3 Family history of diabetes mellitus; I67.2 Cerebral atherosclerosis; Z86.73 Personal history of transient ischemic attack (TIA), and cerebral infarction without residual deficits; Z20.822 Contact with and (suspected) exposure to COVID-19
CPT/HCPCS: 36415; 70450; 70496; 70498; 70551; 71045; 80048; 80061; 81001; 82140; 82962; 84484; 85027; 85610; 85670; 85730; 87040; 93005; 93306; 94760; 95819; G0378; A9270-GY; J0360; J1953; J7030; J7040; Q9967; U0003

== ENCOUNTER 2021-07-04 10:03 | Emergency (ER) | payer MEDICARE ==
--- NOTE | 2021-07-04 10:55 | Emergency Department Report ---
ED Seizure HPI - General Chief Complaint: Seizure Stated Complaint: SEIZURE Time Seen by Provider: 07/04/21 10:39 Source: EMS Mode of arrival: Stretcher Limitations: Altered Mental Status - History of Present Illness Initial Comments: Patient is 81 years old female with history of dementia, hypertension, CVA and seizure. Patient brought to the emergency room via EMS for evaluation of possible seizure. EMS reported that patient was taken by her family for PEG tube removal and patient started shaking. EMS stated that patient was given Versed intranasally that aborted her seizure. In the emergency room patient is alert however she is disoriented and confused but according to the EMS this is her baseline. Patient is shaking and stating that she is very cold. Weather is cold outside also. MD Complaint: possible seizure -: Sudden, This morning Description of Episode: other (Shaking) Witnessed:: Yes Seizure History: known seizure disorder Place: home Possible Precipitating Event: none - Related Data Previous Rx's Medication Instructions Recorded Last Taken Type Aspirin [Adult Aspirin] 81 mg PO DAILY #30 tablet. 06/30/20 12/13/20 10:00 Rx methIMAzole [Tapazole] 10 mg PO Q24HR #30 tablet 06/30/20 12/13/20 Rx Lansoprazole Solutab [Prevacid 30 mg FEEDTUBE QDAY #30 tab.rapdis 12/27/20 Unknown Rx Solutab] Apixaban [Eliquis] 5 mg PO Q12HR #60 tablet 12/28/20 Unknown Rx AtorvaSTATin [Lipitor] 40 mg PO QHS #30 tablet 12/28/20 Unknown Rx Metoprolol [Lopressor TAB] 50 mg PO BID #60 tablet 12/28/20 Unknown Rx amLODIPine 10 mg PO DAILY #30 tablet 12/28/20 Unknown Rx hydrALAZINE [Apresoline TAB] 50 mg PO Q8HR #120 tablet 12/28/20 Unknown Rx levETIRAcetam [Keppra] 1,000 mg PO BID #60 oral.liqd 12/28/20 Unknown Rx lisinopriL [Zestril TAB] 20 mg PO BID #60 tablet 12/28/20 Unknown Rx Allergies Allergy/AdvReac Type Severity Reaction Status Date / Time No Known Allergies Allergy Verified 07/04/21 10:10 ED Review of Systems ROS: Stated complaint: SEIZURE Other details as noted in HPI Comment: Unobtainable due to pts medical conditions ED Past Medical Hx - Past Medical History Hx Hypertension: Yes Hx CVA: Yes (Right side) Hx Heart Attack/AMI: Yes Hx Diabetes: Yes Hx Liver Disease: No Hx Renal Disease: No Hx Sickle Cell Disease: No Hx Seizures: Yes Hx Dementia: Yes (vascular dementia) - Social History Smoking Status: Never Smoker - Medications Home Medications: Home Medications Medication Instructions Recorded Confirmed Last Taken Type Aspirin [Adult Aspirin] 81 mg PO DAILY #30 tablet.dr 06/30/20 05/16/21 12/13/20 10:00 Rx methIMAzole [Tapazole] 10 mg PO Q24HR #30 tablet 06/30/20 05/16/21 12/13/20 Rx Lansoprazole Solutab [Prevacid 30 mg FEEDTUBE QDAY #30 tab.rapdis 12/27/20 05/16/21 Unknown Rx Solutab] Apixaban [Eliquis] 5 mg PO Q12HR #60 tablet 12/28/20 05/16/21 Unknown Rx AtorvaSTATin [Lipitor] 40 mg PO QHS #30 tablet 12/28/20 05/16/21 Unknown Rx Metoprolol [Lopressor TAB] 50 mg PO BID #60 tablet 12/28/20 05/16/21 Unknown Rx amLODIPine 10 mg PO DAILY #30 tablet 12/28/20 05/16/21 Unknown Rx hydrALAZINE [Apresoline TAB] 50 mg PO Q8HR #120 tablet 12/28/20 05/16/21 Unknown Rx levETIRAcetam [Keppra] 1,000 mg PO BID #60 oral.liqd 12/28/20 05/16/21 Unknown Rx lisinopriL [Zestril TAB] 20 mg PO BID #60 tablet 12/28/20 05/16/21 Unknown Rx ED Physical Exam - General Limitations: Altered Mental Status General appearance: alert, in no apparent distress, other (SHAKING) - Head Head exam: Present: atraumatic, normocephalic, normal inspection - Eye Eye exam: Present: normal appearance - ENT ENT exam: Present: normal exam, normal orophraynx, mucous membranes moist - Neck Neck exam: Present: normal inspection, full ROM. Absent: tenderness, meningismus - Respiratory Respiratory exam: Present: normal lung sounds bilaterally - Cardiovascular Cardiovascular Exam: Present: regular rate, normal rhythm, normal heart sounds - GI/Abdominal GI/Abdominal exam: Present: soft, normal bowel sounds. Absent: distended, tenderness, guarding, rebound, rigid, mass, bruit, pulsatile mass, hernia - Extremities Exam Extremities exam: Present: normal inspection, full ROM, normal capillary refill. Absent: tenderness - Back Exam Back exam: Present: normal inspection, full ROM. Absent: CVA tenderness (R), CVA tenderness (L) - Neurological Exam Neurological exam: Present: alert, altered ED Course Vital Signs 07/04/21 07/04/21 07/04/21 10:30 10:50 11:00 Temperature 98.1 F Pulse Rate 73 71 86 Respiratory 15 18 13 Rate Blood Pressure 215/86 201/78 222/99 Blood Pressure [Left] O2 Sat by Pulse 98 98 98 Oximetry 07/04/21 07/04/21 07/04/21 11:29 11:30 13:02 Temperature Pulse Rate 76 Respiratory 13 13 16 Rate Blood Pressure 192/77 Blood Pressure [Left] O2 Sat by Pulse 98 97 Oximetry 07/04/21 07/04/21 07/04/21 13:16 13:40 14:46 Temperature Pulse Rate 96 H 91 H Respiratory 20 14 19 Rate Blood Pressure 180/77 180/77 180/77 Blood Pressure [Left] O2 Sat by Pulse 98 99 Oximetry 07/04/21 07/04/21 07/04/21 15:00 15:16 15:30 Temperature Pulse Rate 99 H 89 90 Respiratory 13 16 19 Rate Blood Pressure 180/77 200/89 200/89 Blood Pressure [Left] O2 Sat by Pulse 97 100 99 Oximetry 07/04/21 07/04/21 07/04/21 15:46 15:52 15:54 Temperature 98.4 F 98.4 F Pulse Rate 84 83 83 Respiratory 26 H 14 14 Rate Blood Pressure 200/89 Blood Pressure 163/67 163/67 [Left] O2 Sat by Pulse 99 99 99 Oximetry ED Medical Decision Making - Lab Data Result diagrams: 07/04/21 14:13 - Radiology Data Radiology results: report reviewed - Medical Decision Making Patient is 81 years old female with history of dementia, hypertension, CVA and seizure. Patient brought to the emergency room via EMS for evaluation of possible seizure. EMS reported that patient was taken by her family for PEG tube removal and patient started shaking. EMS stated that patient was given Versed intranasally that aborted her seizure. In the emergency room patient is alert however she is disoriented and confused but according to the EMS this is her baseline. Patient is shaking and stating that she is very cold. Weather is cold outside also. Patient remained stable in the ER. Blood pressure slightly elevated. Patient received hydralazine [address] brain is unremarkable. No seizure activity observed in the ER. I believe this symptom that family describes most likely related to chills secondary to colds. Patient will be discharged home and to follow-up with her primary doctor in the next 2 to 3 days and to return to the ER if he develop any new symptoms. Critical care attestation.: If time is entered above; I have spent that time in minutes in the direct care of this critically ill patient, excluding procedure time. ED Disposition Clinical Impression: Seizure Disposition: HOME / SELF CARE / HOMELESS Is pt being admited?: No Condition: Stable Instructions: Seizure, Adult Referrals: PRIMARY CARE, [Primary Care Provider] - 3-5 Days
--- NOTE | 2021-07-04 13:54 | Cat Scan Report ---
CT HEAD WITHOUT CONTRAST INDICATION : SEIZURE. TECHNIQUE: Axial imaging performed from the skull apex through the skull base without the use of con trast. Sagittal and coronal reformatted images. All CT scans at this location are performed using C T dose reduction for ALARA by means of automated exposure control. COMPARISON: 05/14/2021 FINDINGS: Parenchyma: Advanced cortical volume loss and nonspecific chronic white matter changes are again not ed. Encephalomalacia consistent with chronic infarct in the left parieto-occipital region is also aga in noted and unchanged. No acute parenchymal abnormality, mass or hemorrhage is appreciated on noncon trast CT. Ventricles: Ventricles are normal in size and appear symmetric. Bones: No acute osseous abnormality. Sinuses: Sinuses and mastoid air cells are clear. Soft tissues: Soft tissues including the orbits appear normal. IMPRESSION: No acute change since 05/14/2021. Volume loss, chronic white matter changes and chronic is chemic infarct on the left side as described. Signer Name: Chico Ware Jr, MD Signed: 07/04/2021 1:50 PM Workstation Name: [id number]
[2021-07-04] MEDS ORDERED: hydrALAZINE 20 MG/1 ML INJ IV ONE (14:38)
[2021-07-04 15:13] LABS: Basophils % (Auto) 0.4 % (0.0-1.8); Hematocrit 39.3 % (30.3-42.9); Hemoglobin 12.9 gm/dl (10.1-14.3); Lymphocytes # (Auto) 0.7 K/mm3 (1.2-5.4); Lymphocytes % (Auto) 8.9 % (13.4-35.0); Mean Corpuscular HGB Conc 33 % (30-34); Mean Corpuscular Volume 86 fl (79-97); Monocytes # (Auto) 0.3 K/mm3 (0.0-0.8); Monocytes % (Auto) 3.7 % (0.0-7.3); Platelet Count 242 K/mm3 (140-440); Red Blood Count 4.54 M/mm3 (3.65-5.03); Red Cell Distribution Width 14.6 % (13.2-15.2)
[2021-07-04 15:34] LABS: Alanine Aminotransferase 14 units/L (7-56); Albumin 3.9 g/dL (3.9-5)
[2021-07-04 15:36] LABS: Bilirubin,Direct < 0.2 mg/dL (0-0.2)
[2021-07-04 15:53] VITALS: BP 163/67
--- NOTE | 2021-07-05 11:16 | Electrocardiograph Report ---
[facility] Test Date: 2021-07-04 Test Time: 12:02:32 Pat Name: JAX AKBAR Department: Room: Gender: F Fleecer: JORGE LUIS : 1940 Requested By: ALFREDO RODRIGUEZ Order Number: [id number] Reading MD: oTmeka Ellis Measurements Intervals [place] Rate: 78 P: -84 [place]: 58 QRS: 116 QRSD: 107 T: -26 QT: 411 QTc: 469 Interpretive Statements Very poor quality ECG with extensive baseline artifact Probably a normal sinus rhythm Consider old anterior infarct Compared to ECG 05/14/2021 13:36:47 No significant change Electronically Signed On 07-05-2021 11:16:03 EST by Tomeka Ellis
== END 2021-07-04 16:15 | disposition home or self-care (01) ==
LOC: ED 10:03
DX: R56.9 Unspecified convulsions (principal); I10 Essential (primary) hypertension; E11.8 Type 2 diabetes mellitus with unspecified complications; Z86.73 Personal history of transient ischemic attack (TIA), and cerebral infarction without residual deficits
CPT/HCPCS: 36415; 70450; 80076; 85025; 93005; 96374; 99284; J0360

== ENCOUNTER 2021-10-13 15:49 | Emergency (ER) | payer MEDICARE ==
[2021-10-13] MEDS ORDERED: SODIUM CHLORIDE 0.9% 1000 ML 1,000 ML IV ONE (16:23)
--- NOTE | 2021-10-13 16:27 | Emergency Department Report ---
ED General Adult HPI - General Chief complaint: Weakness Stated complaint: WEAKNESS Time Seen by Provider: 10/13/21 16:18 Source: patient, EMS Mode of arrival: Stretcher Limitations: No Limitations - History of Present Illness Initial comments: Patient is 81 years old female with history of hypertension, CHF, dementia and bradycardia. Patient also had right above-knee amputation. Patient brought to the emergency room via EMS for evaluation of generalized weakness. Patient stated that she does not have any problem however her daughter said that she is weak for the last few days. Patient denied any nausea or vomiting. She denied any chest pain, shortness of breath, cough, fever or chills. Severity scale (0 -10): 0 - Related Data Home Medications Medication Instructions Recorded Confirmed Last Taken Cholecalciferol (Vitamin D3) 100 mcg PO QWEEK 08/01/21 08/01/21 07/28/21 [Vitamin D3 2,000 UNIT CHEW TAB] Gabapentin 300 mg PO TID 08/01/21 08/01/21 07/28/21 cloNIDine HCL [Clonidine HCl] 0.3 mg PO BID 08/01/21 08/01/21 07/28/21 Previous Rx's Medication Instructions Recorded Last Taken Type amLODIPine 10 mg PO DAILY #30 tablet 12/28/20 07/28/21 Rx Apixaban [Eliquis] 5 mg PO Q12HR 30 Days #60 tablet 08/03/21 Unknown Rx Aspirin [Adult Aspirin] 81 mg PO DAILY 30 Days #30 08/03/21 Unknown Rx tablet. AtorvaSTATin [Lipitor] 40 mg PO QHS 30 Days #30 tablet 08/03/21 Unknown Rx Lansoprazole Solutab [Prevacid 30 mg FEEDTUBE QDAY 30 Days #30 08/03/21 Unknown Rx Solutab] tab.alessandro Metoprolol [Lopressor TAB] 50 mg PO BID #60 tablet 08/03/21 Unknown Rx amLODIPine 10 mg PO QDAY 30 Days #30 tablet 08/03/21 Unknown Rx hydrALAZINE [Apresoline TAB] 50 mg PO Q8HR 30 Days #90 tablet 08/03/21 Unknown Rx levETIRAcetam [Keppra TAB] 1,000 mg PO BID 30 Days #120 tablet 08/03/21 Unknown Rx lisinopriL [Zestril TAB] 20 mg PO BID 30 Days #60 tablet 08/03/21 Unknown Rx methIMAzole [Tapazole] 10 mg PO Q24HR 30 Days #30 tablet 08/03/21 Unknown Rx Allergies Allergy/AdvReac Type Severity Reaction Status Date / Time No Known Allergies Allergy Verified 10/13/21 15:54 ED Review of Systems ROS: Stated complaint: WEAKNESS Other details as noted in HPI Comment: All other systems reviewed and negative Constitutional: denies: chills, fever Respiratory: denies: cough, shortness of breath, SOB with exertion, SOB at rest Cardiovascular: denies: chest pain, palpitations Gastrointestinal: denies: abdominal pain, nausea, vomiting, diarrhea, constipation, hematemesis, hematochezia Musculoskeletal: denies: back pain Neurological: weakness. denies: headache, numbness, paresthesias, confusion ED Past Medical Hx - Past Medical History Hx Hypertension: Yes Hx CVA: Yes (Right side) Hx Heart Attack/AMI: Yes Hx Diabetes: Yes Hx Liver Disease: No Hx Renal Disease: No Hx Sickle Cell Disease: No Hx Seizures: Yes Hx Dementia: Yes (vascular dementia) - Surgical History Additional Surgical History: Right AKA - Social History Smoking Status: Never Smoker - Medications Home Medications: Home Medications Medication Instructions Recorded Confirmed Last Taken Type amLODIPine 10 mg PO DAILY #30 tablet 12/28/20 07/29/21 07/28/21 Rx Cholecalciferol (Vitamin D3) 100 mcg PO QWEEK 08/01/21 08/01/21 07/28/21 History [Vitamin D3 2,000 UNIT CHEW TAB] Gabapentin 300 mg PO TID 08/01/21 08/01/21 07/28/21 History cloNIDine HCL [Clonidine HCl] 0.3 mg PO BID 08/01/21 08/01/21 07/28/21 History Apixaban [Eliquis] 5 mg PO Q12HR 30 Days #60 tablet 08/03/21 Unknown Rx Aspirin [Adult Aspirin] 81 mg PO DAILY 30 Days #30 08/03/21 Unknown Rx tablet. AtorvaSTATin [Lipitor] 40 mg PO QHS 30 Days #30 tablet 08/03/21 Unknown Rx Lansoprazole Solutab [Prevacid 30 mg FEEDTUBE QDAY 30 Days #30 08/03/21 Unknown Rx Solutab] tab.alessandro Metoprolol [Lopressor TAB] 50 mg PO BID #60 tablet 08/03/21 Unknown Rx amLODIPine 10 mg PO QDAY 30 Days #30 tablet 08/03/21 Unknown Rx hydrALAZINE [Apresoline TAB] 50 mg PO Q8HR 30 Days #90 tablet 08/03/21 Unknown Rx levETIRAcetam [Keppra TAB] 1,000 mg PO BID 30 Days #120 tablet 08/03/21 Unknown Rx lisinopriL [Zestril TAB] 20 mg PO BID 30 Days #60 tablet 08/03/21 Unknown Rx methIMAzole [Tapazole] 10 mg PO Q24HR 30 Days #30 tablet 08/03/21 Unknown Rx ED Physical Exam - General Limitations: No Limitations General appearance: alert, in no apparent distress - Head Head exam: Present: atraumatic, normocephalic, normal inspection - Eye Eye exam: Present: normal appearance - Neck Neck exam: Present: normal inspection. Absent: tenderness, meningismus - Respiratory Respiratory exam: Present: normal lung sounds bilaterally - Cardiovascular Cardiovascular Exam: Present: bradycardia - GI/Abdominal GI/Abdominal exam: Present: soft, normal bowel sounds. Absent: distended, tenderness, guarding, rebound, rigid - Extremities Exam Extremities exam: Present: normal inspection, full ROM, normal capillary refill, other (Right above-knee amputation). Absent: tenderness - Back Exam Back exam: Absent: CVA tenderness (R), CVA tenderness (L) - Neurological Exam Neurological exam: Present: alert, oriented X3, CN II-XII intact. Absent: motor sensory deficit - Psychiatric Psychiatric exam: Present: normal mood - Skin Skin exam: Present: warm, intact, normal color ED Course Vital Signs 10/13/21 10/13/21 10/13/21 15:50 15:54 17:00 Temperature 98 F Pulse Rate 79 62 60 Respiratory 18 23 20 Rate Blood Pressure 142/92 156/37 186/52 [Left] O2 Sat by Pulse 100 100 100 Oximetry 10/13/21 10/13/21 17:27 18:18 Temperature Pulse Rate 57 L 57 L Respiratory 19 18 Rate Blood Pressure 186/52 161/105 [Left] O2 Sat by Pulse 100 99 Oximetry ED Medical Decision Making - Lab Data Result diagrams: 10/13/21 17:02 10/13/21 17:02 - EKG Data -: EKG Interpreted by Ga EKG shows normal: sinus rhythm Rate: normal - EKG Data Interpretation: no acute changes - Radiology Data Radiology results: report reviewed - Medical Decision Making Patient is 81 years old female with history of hypertension, CHF, dementia and bradycardia. Patient also had right above-knee amputation. Patient brought to the emergency room via EMS for evaluation of generalized weakness. Patient stated that she does not have any problem however her daughter said that she is weak for the last few days. Patient denied any nausea or vomiting. She denied any chest pain, shortness of breath, cough, fever or chills. I reviewed patient previous record. Patient does have history of bradycardia and cardiology has been consulted when she was in the hospital last year. Patient had severe CHF with an ejection fraction of 25%. Chest x-ray showed pulmonary edema. Patient received Lasix 40 mg IV. Patient oxygen saturation remained 100% on room air. Labs reviewed and is unremarkable including a negative troponin. Slightly evaded BNP. Upon reviewing patient medication patient is on metoprolol and that could be contributing to her bradycardia. I made a notes for discontinuation of this medication in the discharge instruction sheet. Patient will be discharged home to follow-up with her managing manager in the next 2 to 3 days. I did not see any Lasix order for this patient so I will order some Lasix. Patient is stable for discharge. She also advised to return to the ER if she develop any new symptoms. Critical care attestation.: If time is entered above; I have spent that time in minutes in the direct care of this critically ill patient, excluding procedure time. ED Disposition Clinical Impression: CHF exacerbation, Generalized weakness Disposition: 01 HOME / SELF CARE / HOMELESS Is pt being admited?: No Condition: Stable Instructions: Weakness, Heart Failure Exacerbation Additional Instructions: Please discontinue metoprolol as it is slow your heart rate. Please follow-up with your managing manager and your primary care physician for the adjustment of this medication. Referrals: PRIMARY CAREMD [Primary Care Provider] - 3-5 Days
--- NOTE | 2021-10-13 16:58 | XRay Report ---
XR chest 1V ap INDICATION / CLINICAL INFORMATION: Weakness. COMPARISON: 05/14/2021 FINDINGS: SUPPORT DEVICES: None. HEART /PULMONARY VASCULATURE: Heart is enlarged and pulmonary vasculature is mildly congested. LUNGS / PLEURA: Mild patchy airspace opacities within the right mid and lower lung. Left lung is oxana r of consolidation. No sizable pleural effusion. No pneumothorax. IMPRESSION: Cardiac enlargement with mild congestion of the pulmonary vasculature, suspect CHF. Mild patchy airsp juve opacities within the right mid and lower lung may reflect asymmetric edema, atelectasis or pneumo kalee. Signer Name: Sai Tomas MD Signed: 10/13/2021 4:54 PM Workstation Name: [id number]
[2021-10-13 17:43] LABS: Blood Urea Nitrogen 20 mg/dL (7-17); Calcium 10.1 mg/dL (8.4-10.2); Hemolysis Index 17
[2021-10-13 17:44] LABS: Alanine Aminotransferase 9 units/L (7-56); Albumin 3.7 g/dL (3.9-5); Basophils % (Auto) 1.1 % (0.0-1.8); Eosinophils # (Auto) 0.1 K/mm3 (0.0-0.4); Hematocrit 36.6 % (30.3-42.9); Hemoglobin 12.4 gm/dl (10.1-14.3); Lymphocytes # (Auto) 1.7 K/mm3 (1.2-5.4); Lymphocytes % (Auto) 48.5 % (13.4-35.0); Mean Corpuscular HGB Conc 34 % (30-34); Mean Corpuscular Volume 87 fl (79-97); Monocytes # (Auto) 0.4 K/mm3 (0.0-0.8); Monocytes % (Auto) 9.7 % (0.0-7.3); Platelet Count 187 K/mm3 (140-440); Red Blood Count 4.22 M/mm3 (3.65-5.03); Red Cell Distribution Width 16.7 % (13.2-15.2)
[2021-10-13] MEDS ORDERED: FUROSEMIDE 40 MG/4 ML INJ IV ONE (17:46)
[2021-10-13 18:01] LABS: BUN/Creatinine Ratio 29; Bilirubin,Direct < 0.2 mg/dL (0-0.2)
[2021-10-13 18:09] LABS: INR 1.17 (0.87-1.13)
[2021-10-13 19:05] LABS: Bacteria,Urine 4+ /HPF (Negative); Bilirubin,Urine NEG (Negative); Blood,Urine NEG (Negative); Color,Urine Yellow (Yellow); Hyaline Casts,Urine 3 /LPF; Mucus,Urine FEW /HPF; Protein,Urine <15 mg/dL mg/dL (Negative); Urobilinogen,Urine < 2.0 mg/dL (<2.0)
[2021-10-13 20:42] VITALS: BP 165/90
--- NOTE | 2021-10-14 10:12 | Electrocardiograph Report ---
[facility] Test Date: 2021-10-13 Test Time: 16:10:58 Pat Name: JAX AKBAR Department: Room: Gender: F Market Specialist: NURSE : 1940 Requested By: ALFREDO RODRIGUEZ Order Number: [id number] Reading MD: Tomeka Ellis Measurements Intervals [place] Rate: 56 P: 11 [place]: 200 QRS: -36 QRSD: 85 T: 109 QT: 310 QTc: 300 Interpretive Statements Sinus bradycardia with frequent PVCs in the pattern of ventricular bigeminy Left axis deviation Possible old inferior infarct Low voltage QRS Compared to ECG 07/29/2021 13:16:27 No significant change Electronically Signed On 10-14-2021 10:12:20 EST by Tomeka Ellis
== END 2021-10-13 20:41 | disposition home or self-care (01) ==
LOC: ED 15:49
DX: R53.1 Weakness (principal); I11.0 Hypertensive heart disease with heart failure; I50.9 Heart failure, unspecified; E11.9 Type 2 diabetes mellitus without complications; R56.9 Unspecified convulsions; F01.50 Vascular dementia, unspecified severity, without behavioral disturbance, psychotic disturbance, mood disturbance, and anxiety; Z89.9 Acquired absence of limb, unspecified
CPT/HCPCS: 36415; 71045; 80048; 80076; 81001; 82550; 83735; 83880; 84484; 85025; 85610; 87040; 93005; 93010; 96361; 96374; 99284; J1940; J7030; Q0162

== ENCOUNTER 2021-10-24 03:53 | Emergency (ER) | payer MEDICARE ==
[2021-10-24] MEDS ORDERED: levETIRAcetam 1000 MG/NS 0.75% 1,000 MG/100 ML BAG IV ONE (04:06)
--- NOTE | 2021-10-24 04:10 | Emergency Department Report ---
ED Seizure HPI - General Stated Complaint: SEIZURE Time Seen by Provider: 10/24/21 03:58 Source: patient - History of Present Illness Initial Comments: Patient is 81 years old female with history of dementia, hypertension, diabetes, CVA and seizure. Patient is on Keppra. Patient brought to the emergency room via EMS for evaluation of 1 episode of seizure started prior to coming to the ER. EMS stated that patient received intranasal Versed and that aborted her seizure. Upon arrival to the ER patient is alert, oriented x3 in no acute distress. Patient denied any chest pain or shortness of breath. She stated that she have some cough for the last few days. No other complaint. MD Complaint: seizure - Related Data Home Medications Medication Instructions Recorded Confirmed Last Taken Cholecalciferol (Vitamin D3) 100 mcg PO QWEEK 08/01/21 08/01/21 07/28/21 [Vitamin D3 2,000 UNIT CHEW TAB] Gabapentin 300 mg PO TID 08/01/21 08/01/21 07/28/21 cloNIDine HCL [Clonidine HCl] 0.3 mg PO BID 08/01/21 08/01/21 07/28/21 Previous Rx's Medication Instructions Recorded Last Taken Type amLODIPine 10 mg PO DAILY #30 tablet 12/28/20 07/28/21 Rx Apixaban [Eliquis] 5 mg PO Q12HR 30 Days #60 tablet 08/03/21 Unknown Rx Aspirin [Adult Aspirin] 81 mg PO DAILY 30 Days #30 08/03/21 Unknown Rx tablet. AtorvaSTATin [Lipitor] 40 mg PO QHS 30 Days #30 tablet 08/03/21 Unknown Rx Lansoprazole Solutab [Prevacid 30 mg FEEDTUBE QDAY 30 Days #30 08/03/21 Unknown Rx Solutab] tab.rapdis Metoprolol [Lopressor TAB] 50 mg PO BID #60 tablet 08/03/21 Unknown Rx amLODIPine 10 mg PO QDAY 30 Days #30 tablet 08/03/21 Unknown Rx hydrALAZINE [Apresoline TAB] 50 mg PO Q8HR 30 Days #90 tablet 08/03/21 Unknown Rx levETIRAcetam [Keppra TAB] 1,000 mg PO BID 30 Days #120 tablet 08/03/21 Unknown Rx lisinopriL [Zestril TAB] 20 mg PO BID 30 Days #60 tablet 08/03/21 Unknown Rx methIMAzole [Tapazole] 10 mg PO Q24HR 30 Days #30 tablet 08/03/21 Unknown Rx Furosemide [Lasix TAB] 40 mg PO QDAY #7 tablet 10/13/21 Unknown Rx Potassium Chloride [K-Dur] 20 meq PO QDAY #7 10/13/21 Unknown Rx Allergies Allergy/AdvReac Type Severity Reaction Status Date / Time No Known Allergies Allergy Verified 10/13/21 15:54 ED Review of Systems ROS: Stated complaint: SEIZURE Other details as noted in HPI Comment: All other systems reviewed and negative Constitutional: denies: chills, fever Respiratory: denies: cough, shortness of breath, SOB with exertion Gastrointestinal: denies: abdominal pain, nausea, vomiting Musculoskeletal: denies: back pain ED Past Medical Hx - Past Medical History Hx Hypertension: Yes Hx CVA: Yes (Right side) Hx Heart Attack/AMI: Yes Hx Diabetes: Yes Hx Liver Disease: No Hx Renal Disease: No Hx Sickle Cell Disease: No Hx Seizures: Yes Hx Dementia: Yes (vascular dementia) - Surgical History Additional Surgical History: Right AKA - Social History Smoking Status: Never Smoker - Medications Home Medications: Home Medications Medication Instructions Recorded Confirmed Last Taken Type amLODIPine 10 mg PO DAILY #30 tablet 12/28/20 07/29/21 07/28/21 Rx Cholecalciferol (Vitamin D3) 100 mcg PO QWEEK 08/01/21 08/01/21 07/28/21 History [Vitamin D3 2,000 UNIT CHEW TAB] Gabapentin 300 mg PO TID 08/01/21 08/01/21 07/28/21 History cloNIDine HCL [Clonidine HCl] 0.3 mg PO BID 08/01/21 08/01/21 07/28/21 History Apixaban [Eliquis] 5 mg PO Q12HR 30 Days #60 tablet 08/03/21 Unknown Rx Aspirin [Adult Aspirin] 81 mg PO DAILY 30 Days #30 08/03/21 Unknown Rx tablet. AtorvaSTATin [Lipitor] 40 mg PO QHS 30 Days #30 tablet 08/03/21 Unknown Rx Lansoprazole Solutab [Prevacid 30 mg FEEDTUBE QDAY 30 Days #30 08/03/21 Unknown Rx Solutab] tab.alessandro Metoprolol [Lopressor TAB] 50 mg PO BID #60 tablet 08/03/21 Unknown Rx amLODIPine 10 mg PO QDAY 30 Days #30 tablet 08/03/21 Unknown Rx hydrALAZINE [Apresoline TAB] 50 mg PO Q8HR 30 Days #90 tablet 08/03/21 Unknown Rx levETIRAcetam [Keppra TAB] 1,000 mg PO BID 30 Days #120 tablet 08/03/21 Unknown Rx lisinopriL [Zestril TAB] 20 mg PO BID 30 Days #60 tablet 08/03/21 Unknown Rx methIMAzole [Tapazole] 10 mg PO Q24HR 30 Days #30 tablet 08/03/21 Unknown Rx Furosemide [Lasix TAB] 40 mg PO QDAY #7 tablet 10/13/21 Unknown Rx Potassium Chloride [K-Dur] 20 meq PO QDAY #7 10/13/21 Unknown Rx ED Physical Exam - General General appearance: alert, in no apparent distress - Head Head exam: Present: atraumatic, normocephalic, normal inspection - Eye Eye exam: Present: normal appearance - ENT ENT exam: Present: normal exam, normal orophraynx, mucous membranes moist - Neck Neck exam: Present: normal inspection, full ROM. Absent: tenderness, meningismus - Respiratory Respiratory exam: Present: normal lung sounds bilaterally - Cardiovascular Cardiovascular Exam: Present: regular rate, normal rhythm, normal heart sounds - GI/Abdominal GI/Abdominal exam: Present: soft, normal bowel sounds. Absent: distended, tenderness, guarding, rebound, rigid, organomegaly, mass, bruit, pulsatile mass, hernia - Extremities Exam Extremities exam: Present: other (Right above-knee amputation.). Absent: pedal edema - Back Exam Back exam: Present: normal inspection. Absent: CVA tenderness (R), CVA tenderness (L) - Neurological Exam Neurological exam: Present: alert, oriented X3, CN II-XII intact. Absent: motor sensory deficit - Psychiatric Psychiatric exam: Present: normal mood - Skin Skin exam: Present: warm ED Course Vital Signs 10/24/21 10/24/21 10/24/21 04:43 04:45 04:52 Temperature 98.8 F Pulse Rate 77 Respiratory 15 Rate Blood Pressure Blood Pressure 169/104 [Left] O2 Sat by Pulse 100 99 99 Oximetry 10/24/21 10/24/21 10/24/21 05:01 05:15 05:24 Temperature Pulse Rate 83 77 Respiratory 15 11 L Rate Blood Pressure 225/114 214/80 235/134 Blood Pressure [Left] O2 Sat by Pulse 99 99 Oximetry 10/24/21 05:29 Temperature 98.8 F Pulse Rate 40 L Respiratory 21 Rate Blood Pressure 229/77 Blood Pressure [Left] O2 Sat by Pulse 100 Oximetry ED Medical Decision Making - Lab Data Result diagrams: 10/24/21 04:26 10/24/21 04:26 - Radiology Data Radiology results: report reviewed - Medical Decision Making Patient is 81 years old female with history of dementia, hypertension, diabetes, CVA and seizure. Patient is on Keppra. Patient brought to the emergency room via EMS for evaluation of 1 episode of seizure started prior to coming to the ER. EMS stated that patient received intranasal Versed and that aborted her seizure. Upon arrival to the ER patient is alert, oriented x3 in no acute distress. Patient denied any chest pain or shortness of breath. She stated that she have some cough for the last few days. No other complaint. Patient remained stable in the ER with stable vital signs except for elevated blood pressure for which she received hydralazine 20 mg IV. Patient received Keppra 1 g IV for seizure. Labs reviewed and is unremarkable. Chest x-ray showed right lung opacity concerning for pneumonia. Patient given prescription for Levaquin and advised to follow-up with her primary doctor in the next 2 to 3 days and to return to the ER if she develop any new symptoms. Patient also advised to follow-up with his neurologist. Critical care attestation.: If time is entered above; I have spent that time in minutes in the direct care of this critically ill patient, excluding procedure time. ED Disposition Clinical Impression: Seizure, Pneumonia, Malignant hypertension Disposition: 01 HOME / SELF CARE / HOMELESS Is pt being admited?: No Condition: Stable Instructions: Bacterial Pneumonia (ED), Hypertension (ED), Hypertension, Adult, [id number], Seizure, Adult, [id number], Community-Acquired Pneumonia, Adult Referrals: MARLEEN CAMPOS MD [Primary Care Provider] - 3-5 Days
[2021-10-24 04:46] LABS: Basophils % (Auto) 1.2 % (0.0-1.8); Eosinophils # (Auto) 0.1 K/mm3 (0.0-0.4); Eosinophils % (Auto) 2.4 % (0.0-4.3); Hematocrit 41.5 % (30.3-42.9); Hemoglobin 13.4 gm/dl (10.1-14.3); Lymphocytes # (Auto) 1.7 K/mm3 (1.2-5.4); Lymphocytes % (Auto) 42.8 % (13.4-35.0); Mean Corpuscular HGB Conc 32 % (30-34); Mean Corpuscular Volume 87 fl (79-97); Monocytes # (Auto) 0.4 K/mm3 (0.0-0.8); Monocytes % (Auto) 10.7 % (0.0-7.3); Platelet Count 217 K/mm3 (140-440); Red Blood Count 4.76 M/mm3 (3.65-5.03); Red Cell Distribution Width 15.8 % (13.2-15.2)
[2021-10-24 05:03] LABS: Alanine Aminotransferase 11 units/L (7-56); Albumin 3.9 g/dL (3.9-5); BUN/Creatinine Ratio 11; Blood Urea Nitrogen 10 mg/dL (7-17); Hemolysis Index 38
[2021-10-24 05:07] LABS: Bilirubin,Direct < 0.2 mg/dL (0-0.2)
[2021-10-24] MEDS ORDERED: hydrALAZINE 20 MG/1 ML INJ IV ONE (05:20)
--- NOTE | 2021-10-24 05:35 | XRay Report ---
CHEST 1 VIEW INDICATION: COUGH. COMPARISON: 10/13/2021 FINDINGS: Support devices: Unchanged. Heart: Stable. Lungs/Pleura: Mild patchy airspace opacities in the right lung. Left lung is clear. No pleural abnorm ality. IMPRESSION: 1. Mild right lung opacities are concerning for pneumonia. Signer Name: Ted Blanchard MD Signed: 10/24/2021 5:31 AM Workstation Name: [id number]
[2021-10-24 14:23] VITALS: BP 185/98
== END 2021-10-24 14:20 | disposition home or self-care (01) ==
LOC: ED 03:53
DX: J18.9 Pneumonia, unspecified organism (principal); R56.9 Unspecified convulsions; I10 Essential (primary) hypertension; I62.9 Nontraumatic intracranial hemorrhage, unspecified; E11.9 Type 2 diabetes mellitus without complications; F03.90 Unspecified dementia, unspecified severity, without behavioral disturbance, psychotic disturbance, mood disturbance, and anxiety; Z86.73 Personal history of transient ischemic attack (TIA), and cerebral infarction without residual deficits
CPT/HCPCS: 36415; 71045; 80048; 80076; 85025; 96365; 96375; 99284; J0360; J1953

== ENCOUNTER 2022-01-09 21:04 | Emergency (ER) | payer MEDICARE ==
--- NOTE | 2022-01-09 21:36 | Emergency Department Report ---
ED Seizure HPI - General Chief Complaint: Seizure Stated Complaint: SEIZURE Time Seen by Provider: 01/09/22 21:23 Source: EMS Mode of arrival: Stretcher Limitations: No Limitations - History of Present Illness Initial Comments: Patient is a 81-year-old female with history of dementia and seizures brought in from home by EMS for evaluation of witnessed seizure. She is reportedly compliant with her medications. She had a witnessed seizure with EMS and was subsequently given intranasal Versed. - Related Data Home Medications Medication Instructions Recorded Confirmed Last Taken Cholecalciferol (Vitamin D3) 100 mcg PO QWEEK 08/01/21 08/01/21 07/28/21 [Vitamin D3 2,000 UNIT CHEW TAB] Gabapentin 300 mg PO TID 08/01/21 08/01/21 07/28/21 cloNIDine HCL [Clonidine HCl] 0.3 mg PO BID 08/01/21 08/01/21 07/28/21 Previous Rx's Medication Instructions Recorded Last Taken Type amLODIPine 10 mg PO DAILY #30 tablet 12/28/20 07/28/21 Rx Apixaban [Eliquis] 5 mg PO Q12HR 30 Days #60 tablet 08/03/21 Unknown Rx Aspirin [Adult Aspirin] 81 mg PO DAILY 30 Days #30 08/03/21 Unknown Rx tablet. AtorvaSTATin [Lipitor] 40 mg PO QHS 30 Days #30 tablet 08/03/21 Unknown Rx Lansoprazole Solutab [Prevacid 30 mg FEEDTUBE QDAY 30 Days #30 08/03/21 Unknown Rx Solutab] tab.alessandro Metoprolol [Lopressor TAB] 50 mg PO BID #60 tablet 08/03/21 Unknown Rx amLODIPine 10 mg PO QDAY 30 Days #30 tablet 08/03/21 Unknown Rx hydrALAZINE [Apresoline TAB] 50 mg PO Q8HR 30 Days #90 tablet 08/03/21 Unknown Rx levETIRAcetam [Keppra TAB] 1,000 mg PO BID 30 Days #120 tablet 08/03/21 Unknown Rx lisinopriL [Zestril TAB] 20 mg PO BID 30 Days #60 tablet 08/03/21 Unknown Rx methIMAzole [Tapazole] 10 mg PO Q24HR 30 Days #30 tablet 08/03/21 Unknown Rx Furosemide [Lasix TAB] 40 mg PO QDAY #7 tablet 10/13/21 Unknown Rx Potassium Chloride [K-Dur] 20 meq PO QDAY #7 10/13/21 Unknown Rx levoFLOXacin [Levaquin TAB] 500 mg PO QDAY #7 tablet 10/24/21 Unknown Rx Allergies Allergy/AdvReac Type Severity Reaction Status Date / Time No Known Allergies Allergy Verified 10/13/21 15:54 ED Review of Systems ROS: Stated complaint: SEIZURE Other details as noted in HPI Comment: Unobtainable due to pts medical conditions ED Past Medical Hx - Past Medical History Previous Medical History?: Yes Hx Hypertension: Yes Hx CVA: Yes (Right side) Hx Heart Attack/AMI: Yes Hx Diabetes: Yes Hx Liver Disease: No Hx Renal Disease: No Hx Sickle Cell Disease: No Hx Seizures: Yes Hx Dementia: Yes (vascular dementia) Additional medical history: A-fib - Surgical History Past Surgical History?: Yes Additional Surgical History: Right AKA - Social History Smoking Status: Unknown if ever smoked - Medications Home Medications: Home Medications Medication Instructions Recorded Confirmed Last Taken Type amLODIPine 10 mg PO DAILY #30 tablet 12/28/20 07/29/21 07/28/21 Rx Cholecalciferol (Vitamin D3) 100 mcg PO QWEEK 08/01/21 08/01/21 07/28/21 History [Vitamin D3 2,000 UNIT CHEW TAB] Gabapentin 300 mg PO TID 08/01/21 08/01/21 07/28/21 History cloNIDine HCL [Clonidine HCl] 0.3 mg PO BID 08/01/21 08/01/21 07/28/21 History Apixaban [Eliquis] 5 mg PO Q12HR 30 Days #60 tablet 08/03/21 Unknown Rx Aspirin [Adult Aspirin] 81 mg PO DAILY 30 Days #30 08/03/21 Unknown Rx tablet. AtorvaSTATin [Lipitor] 40 mg PO QHS 30 Days #30 tablet 08/03/21 Unknown Rx Lansoprazole Solutab [Prevacid 30 mg FEEDTUBE QDAY 30 Days #30 08/03/21 Unknown Rx Solutab] tab.rapdis Metoprolol [Lopressor TAB] 50 mg PO BID #60 tablet 08/03/21 Unknown Rx amLODIPine 10 mg PO QDAY 30 Days #30 tablet 08/03/21 Unknown Rx hydrALAZINE [Apresoline TAB] 50 mg PO Q8HR 30 Days #90 tablet 08/03/21 Unknown Rx levETIRAcetam [Keppra TAB] 1,000 mg PO BID 30 Days #120 tablet 08/03/21 Unknown Rx lisinopriL [Zestril TAB] 20 mg PO BID 30 Days #60 tablet 08/03/21 Unknown Rx methIMAzole [Tapazole] 10 mg PO Q24HR 30 Days #30 tablet 08/03/21 Unknown Rx Furosemide [Lasix TAB] 40 mg PO QDAY #7 tablet 10/13/21 Unknown Rx Potassium Chloride [K-Dur] 20 meq PO QDAY #7 10/13/21 Unknown Rx levoFLOXacin [Levaquin TAB] 500 mg PO QDAY #7 tablet 10/24/21 Unknown Rx ED Physical Exam - General Limitations: No Limitations General appearance: postictal (Patient is nonverbal and appears postictal however unsure if this is her baseline due to history of dementia) - Head Head exam: Present: atraumatic, normocephalic - Eye Eye exam: Present: normal appearance, EOMI - Neck Neck exam: Present: normal inspection - Respiratory Respiratory exam: Present: normal lung sounds bilaterally. Absent: respiratory distress - Cardiovascular Cardiovascular Exam: Present: regular rate, normal rhythm, normal heart sounds - GI/Abdominal GI/Abdominal exam: Present: soft. Absent: distended - Rectal Rectal exam: Present: deferred - Extremities Exam Extremities exam: Present: other (Right AKA) - Neurological Exam Neurological exam: Present: other (Postictal versus advanced dementia) - Skin Skin exam: Present: warm, dry, intact, normal color ED Course Vital Signs 01/09/22 21:10 Temperature 98.6 F Pulse Rate 70 Respiratory 18 Rate Blood Pressure 188/82 O2 Sat by Pulse 99 Oximetry ED Medical Decision Making - Lab Data Result diagrams: 01/09/22 21:36 01/09/22 21:36 - Medical Decision Making Patient brought in by EMS for evaluation of witnessed seizure at home. Patient has history of seizures and takes Keppra and is reportedly compliant with her regimen. CT head obtained as patient arrived nonverbal/postictal and shows no acute findings. Patient was loaded with IV Keppra. She was monitored in the ED for several hours. On reassessment she is awake, alert and speaking appropriately. She is stable for discharge home. Critical care attestation.: If time is entered above; I have spent that time in minutes in the direct care of this critically ill patient, excluding procedure time. ED Disposition Clinical Impression: Seizure Disposition: 01 HOME / SELF CARE / HOMELESS Is pt being admited?: No Does the pt Need Aspirin: No Condition: Stable Instructions: Seizure, Adult, [id number] Time of Disposition: 02:48
[2022-01-09 21:48] LABS: Basophils % (Auto) 1.4 % (0.0-1.8); Eosinophils # (Auto) 0.1 K/mm3 (0.0-0.4); Eosinophils % (Auto) 2.3 % (0.0-4.3); Hematocrit 39.5 % (30.3-42.9); Hemoglobin 12.8 gm/dl (10.1-14.3); Lymphocytes # (Auto) 1.2 K/mm3 (1.2-5.4); Lymphocytes % (Auto) 39.3 % (13.4-35.0); Mean Corpuscular HGB Conc 33 % (30-34); Mean Corpuscular Volume 85 fl (79-97); Monocytes # (Auto) 0.3 K/mm3 (0.0-0.8); Monocytes % (Auto) 9.7 % (0.0-7.3); Platelet Count 201 K/mm3 (140-440); Red Blood Count 4.63 M/mm3 (3.65-5.03); Red Cell Distribution Width 15.6 % (13.2-15.2)
[2022-01-09 22:09] LABS: Alanine Aminotransferase 14 units/L (7-56); Albumin 3.8 g/dL (3.9-5); BUN/Creatinine Ratio 17; Blood Urea Nitrogen 15 mg/dL (7-17); Calcium 10.2 mg/dL (8.4-10.2); Hemolysis Index 14
--- NOTE | 2022-01-09 22:46 | Cat Scan Report ---
CT HEAD WITHOUT CONTRAST INDICATION / CLINICAL INFORMATION: Seizure. TECHNIQUE: All CT scans at this location are performed using CT dose reduction for ALARA by means of automated exposure control. COMPARISON: MRI from 08/01/2021. FINDINGS: BRAIN PARENCHYMA: Moderate chronic small vessel ischemic changes with encephalomalacia related to rem ote left lateral temporal and occipital lobe infarction. This appears unchanged from prior MRI. No ev idence of recent infarct. No acute intracranial hemorrhage, mass effect, or midline shift. VENTRICULAR SYSTEM/EXTRA-AXIAL SPACES: Age-related cerebral atrophy. No extra-axial fluid collection. ORBITS: No acute finding SKELETAL SYSTEM/SOFT TISSUES: Normal bones and soft tissues. PARANASAL SINUSES/MASTOID AIR CELLS: No significant abnormality. ADDITIONAL FINDINGS: None. IMPRESSION: 1. No acute intracranial abnormality. 2. Stable remote left lateral temporal and occipital lobe infarction and age-related cerebral atrophy . Signer Name: Sai Tomas MD Signed: 01/09/2022 10:41 PM Workstation Name: [id number]
[2022-01-10] MEDS ORDERED: levETIRAcetam 1000 MG/NS 0.75% 1,000 MG/100 ML BAG IV ONE (00:06)
[2022-01-10 04:18] VITALS: BP 182/73
== END 2022-01-10 04:18 | disposition home or self-care (01) ==
LOC: ED 21:04
DX: R56.9 Unspecified convulsions (principal); I10 Essential (primary) hypertension; I21.9 Acute myocardial infarction, unspecified; E11.9 Type 2 diabetes mellitus without complications; Z86.73 Personal history of transient ischemic attack (TIA), and cerebral infarction without residual deficits; F03.90 Unspecified dementia, unspecified severity, without behavioral disturbance, psychotic disturbance, mood disturbance, and anxiety; Z98.890 Other specified postprocedural states; Z79.899 Other long term (current) drug therapy
CPT/HCPCS: 36415; 70450; 80053; 80177; 85025; 96374; 99284; J1953